=== PATIENT | female | born 1945 | race Caucasian/White ===

== ENCOUNTER 2018-10-08 16:38 | Emergency (ER) | payer OTHER ==
[~2018-10-08] VITALS: Ht 147.3 cm; Wt 65.3 kg
[~2018-10-08 16:38] MED LIST: AMLO10 PO; ATEN100 PO; LOSHYD PO; METO50 PO; NISO10ER PO; VALS80 PO
[2018-10-08 17:29] LABS: BASOPHILS ABSOLUTE AUTO 0.05 K/mm3 (0.00-0.23); BASOPHILS PERCENT AUTO 1 % (0-2); EOSINOPHILS ABSOLUTE AUTO 0.64 K/mm3 (0.00-0.68); EOSINOPHILS PERCENT AUTO 9 % (0-6); Hematocrit 45.7 % (33.0-51.0); Hemoglobin 15.4 g/dL (11.5-16.0); IMMATURE GRAN ABSOLUTE AUTO 0.02 K/mm3 (0.00-0.10); IMMATURE GRAN PERCENT AUTO 0 % (0-1); LYMPHOCYTES ABSOLUTE AUTO 1.51 K/mm3 (0.84-5.20); LYMPHOCYTES PERCENT AUTO 22 % (21-46); MONOCYTES ABSOLUTE AUTO 0.56 K/mm3 (0.16-1.47); MONOCYTES PERCENT AUTO 8 % (4-13); Mean Corpuscular HGB 32.6 pg (26.0-34.0); Mean Corpuscular HGB Conc 33.7 g/dL (31.5-36.5); Mean Corpuscular Volume 97 fL (80-100); Mean Platelet Volume 10.1 fL (9.1-12.4); NEUTROPHILS ABSOLUTE AUTO 4.06 K/mm3 (1.96-9.15); NEUTROPHILS PERCENT AUTO 59 % (41-73); Platelet Count 241 K/mm3 (150-400); RDW Coefficient Variation 12.3 % (11.7-14.2); RDW Standard Deviation 44.2 fL (35.1-46.3); Red Blood Cell Count 4.72 M/mm3 (3.80-5.20); White Blood Cell Count 6.84 K/mm3 (4.00-11.30)
[2018-10-08] MEDS ORDERED: ELIQUIS2.5 MG PO (17:29)
[2018-10-08] MEDS ORDERED: POTA10T PO (17:30)
[2018-10-08] MEDS ORDERED: METO100 PO (17:30)
[2018-10-08] MEDS ORDERED: ZESTORETIC 20-251 EA PO (17:30)
[2018-10-08] MEDS ORDERED: ROSU5 PO (17:30)
[2018-10-08 17:49] LABS: Alanine Aminotransfer (ALT/SGP 24 U/L (12-78); Albumin, Blood 3.6 g/dL (3.4-5.0); Albumin/Globulin Ratio 0.8 (0.8-1.8); Alk Phos 57 U/L (50-136); Anion Gap 7 mmol/L (6-16); Aspartate Aminotrans (AST/SGOT 23 U/L (12-37); Bilirubin, Total 0.5 mg/dL (0.1-1.0); Blood Urea Nitrogen 33 mg/dL (8-24); Bun/Creatinine Ratio 44.1 (12.0-20.0); CO2, Blood 26 mmol/L (21-32); Calcium, Blood 9.2 mg/dL (8.5-10.1); Chloride, Blood 106 mmol/L (98-108); Creatinine, Blood 0.75 mg/dL (0.40-1.00); Globulin, Blood 4.5 g/dL (2.2-4.0); Glomerular Filtration Rate >60 (60-); Glucose, Blood 157 mg/dL (70-99); Potassium, Blood 3.3 mmol/L (3.5-5.5); Sodium, Blood 139 mmol/L (136-145); Total Protein, Blood 8.1 g/dL (6.4-8.2)
== END 2018-10-08 19:00 | disposition home or self-care (01) ==
LOC: ER 16:38
PROVIDERS: Emergency Medicine
DX: G45.9 Transient cerebral ischemic attack, unspecified (principal); I48.91 Unspecified atrial fibrillation; I10 Essential (primary) hypertension; Z86.73 Personal history of transient ischemic attack (TIA), and cerebral infarction without residual deficits; Z79.899 Other long term (current) drug therapy; Z79.02 Long term (current) use of antithrombotics/antiplatelets
CPT/HCPCS: 36415; 70450; 80053; 85025; 93005; 93010; 99284-25

== ENCOUNTER 2022-02-11 12:37 | Inpatient (IN) | payer OTHER ==
[~2022-02-11] VITALS: Ht 157.5 cm; Wt 72.6 kg
[~2022-02-11 12:37] MED LIST changes: -CALCIUM 500 MG1 EAC2 PO; -MULVITA PO; -PRESERVISION A1 EAC1 PO; -Prinivil10 MG PO
[2022-02-11 14:02] LABS: Influenza A, PCR NEGATIVE (NEGATIVE); Influenza B, PCR NEGATIVE (NEGATIVE); Resp Syncytial Virus, PCR NEGATIVE (NEGATIVE); SARS-Cov-2 (COVID-19) PCR, MMC NEGATIVE (NEGATIVE)
[2022-02-11] MEDS ORDERED: MULVITA PO (14:29)
[2022-02-11] MEDS ORDERED: Prinivil10 MG PO (14:29)
[2022-02-11] MEDS ORDERED: PRESERVISION A1 EAC1 PO (14:29)
[2022-02-11] MEDS ORDERED: CALCIUM 500 MG1 EAC2 PO (14:30)
--- NOTE | 2022-02-11 18:12 | NUR ---
SHIFT SUMMARY PT ADMITTED FROM THE ED AT 1700. ELEVATED BP, PROVIDER NOTIFIED AND AMLODIPINE 5MG GIVEN NOW AND SCHEDULED FOR DAILY. PT IS ON 2L NC. SHE IS A 1 ASSIST TO THE COMMODE. HER NEPHEW IS THE SOURCE OF HER MEDICAL HX INFORMATION AND MEDICATION INFORMATION. HE WAS PRESENT IN THE ED BUT DID NOT COME UP WITH HER TO THE FLOOR. AWAITING FOR HIM TO COMPLETE THE HX AND MED PORTION OF THE ASSESSMENT. SHE IS AOX4 AND [place] BUT HAS HEARING AIDES IN PLACE BL. WILL REPORT TO ONCOMING NURSE.
[2022-02-12 04:51] LABS: Hematocrit 42.1 % (33.0-51.0); Hemoglobin 15.1 g/dL (11.5-16.0); Mean Corpuscular HGB 32.8 pg (26.0-34.0); Mean Corpuscular HGB Conc 35.9 g/dL (31.5-36.5); Mean Corpuscular Volume 91 fL (80-100); Mean Platelet Volume 10.5 fL (9.1-12.4); Platelet Count 235 K/mm3 (150-400); RDW Coefficient Variation 13.2 % (11.7-14.2); Red Blood Cell Count 4.61 M/mm3 (3.80-5.20); White Blood Cell Count 9.19 K/mm3 (4.00-11.30)
[2022-02-12 05:17] LABS: Albumin, Blood 3.1 g/dL (3.4-5.0); Albumin/Globulin Ratio 0.9 (0.8-1.8); Bilirubin, Total 1.3 mg/dL (0.1-1.0); Bun/Creatinine Ratio 40.4 (12.0-20.0); Calcium, Blood 8.8 mg/dL (8.5-10.1); Creatinine, Blood 0.99 mg/dL (0.40-1.00); Globulin, Blood 3.5 g/dL (2.2-4.0); Potassium, Blood 2.7 mmol/L (3.5-5.5); Total Protein, Blood 6.6 g/dL (6.4-8.2)
--- NOTE | 2022-02-12 05:55 | NUR ---
CALLED DR ROLON FOR HYPOKALCEMIA / NO ANSWER / WAITING CALL BACK
--- NOTE | 2022-02-12 05:59 | NUR ---
SPOKE TO DR ROLON AND RECEIVED ORDERS FOR KCL 40 IV TIMES 2 FOR 2.7 POTASSIUM
--- NOTE | 2022-02-12 06:42 | NUR ---
PATIENT RESTED WELL THROUGH SHIFT. 1 ASSIST TO BEDSIDE COMMODE, 2LNC, EVAC IV TO RAC, AFIB CONTROLLED RATE IN 90'S, 60 MEQ ORDERED FOR POTASSIUM 2.7. NO EVENTS OVERNIGHT
--- NOTE | 2022-02-12 16:37 | NUR ---
SHIFT SUMMARY: PT ALERT AND ORIENTED X4. PT HAD A POTASSIUM LEVEL OF 2.7 THIS AM. 60 MEQ OF POTASSIUM RAN THROUGH PT'S IV THIS SHIFT. DC'D RAC IV AND PLACED NEW IV IN LEFT HAND. PT NEPHEW HAS BEEN IN ROOM THROUGHOUT DAY. BOTH NEPHEW AND PT STATED THEY WOULD LIKE PT TO HAVE PHYSICAL THERAPY/EXERCISE WHILE IN THE HOSPITAL. DR. KENNEY AWARE. PT REFUSED [place]. STATED HER PCP DOES NOT WANT HER TO CONTINUE TAKING. PT HAD AN ASYMPTOMATIC SMALL RUN OF V-TACH THIS AM. PT RECEIVING BUMEX FOR HF AND TOLERATING WELL. PT CURRENTLY RESTING IN BED. BED IN LOWEST POSITION. CALL LIGHT IN REACH. WILL CONTINUE TO MONITOR.
[2022-02-13 06:31] LABS: Hemoglobin 14.4 g/dL (11.5-16.0); Mean Corpuscular HGB 32.7 pg (26.0-34.0); Mean Corpuscular HGB Conc 35.1 g/dL (31.5-36.5); Mean Corpuscular Volume 93 fL (80-100); Mean Platelet Volume 10.4 fL (9.1-12.4); Platelet Count 213 K/mm3 (150-400); RDW Coefficient Variation 13.3 % (11.7-14.2); RDW Standard Deviation 45.1 fL (35.1-46.3); White Blood Cell Count 8.09 K/mm3 (4.00-11.30)
--- NOTE | 2022-02-13 06:32 | NUR ---
PATIENT SLEPT WELL THREW NIGHT. GAVE TYLENOL FOR BACK PAIN THIS AM. ALERT AND ORIENTED, SLOW TO RESPOND BUT [place] WITH HEARING AIDS, 1 ASSIST TO RESTROOM, CONTROLLED AFIB ON TELE, 2LNC, CARDIAC DIET, 20 RIGHT HAND SALINE LOCKED. GOT PATIENT UP TO CHAIR THIS MORNING. NO EVENTS OVERNIGHT
[2022-02-13 07:00] LABS: Albumin, Blood 2.9 g/dL (3.4-5.0); Albumin/Globulin Ratio 0.8 (0.8-1.8); Bilirubin, Total 0.7 mg/dL (0.1-1.0); Bun/Creatinine Ratio 40.8 (12.0-20.0); Calcium, Blood 7.8 mg/dL (8.5-10.1); Creatinine, Blood 1.2 mg/dL (0.40-1.00); Globulin, Blood 3.5 g/dL (2.2-4.0); Potassium, Blood 3.4 mmol/L (3.5-5.5); Total Protein, Blood 6.4 g/dL (6.4-8.2)
--- NOTE | 2022-02-13 17:33 | NUR ---
SHIFT SUMMARY: PT ALERT AND ORIENTED X4. PT HAS BEEN COOPERATIVE AND PLEASANT THIS SHIFT. NO ACUTE CHANGES. POTASSIUM CAME BACK AT 3.4 RATHER THAN THE 2.7 YESTERDAY. PT RECEIVING SCHEDULED POTASSIUM TABLETS. PT C/O 3/10 PAIN IN BACK THIS AFTERNOON BUT DECLINED TYLENOL. REPOSITIONED PT WHICH SHE STATED HELPED. IV BUMEX CHANGED TO PO. IV IN LEFT HAND PATENT AND FLUSHING. PT EVAL ORDERED WELL A DIETARY CONSULT. PT ONE PERSON/STAND BY ASSIST WITH TRANSFERS. CALL LIGHT IN REACH. WILL CONTINUE TO MONITOR.
--- NOTE | 2022-02-14 06:41 | NUR ---
PATIENT SLEPT WELL THROUGH SHIFT. ALERT AND ORIENTED, [place] W/ HEARING AIDS, 2LNC, USES WALKER WHEN AMBULATING. NO EVENTS OVERNIGHT
--- NOTE | 2022-02-14 09:00 | NUR ---
PT PLEASANT TALKATIVE. STATES HAS NEED TO TALK. DENIES PAIN THIS AN. A/O X4. H/R IRREG, NO MURMUR NOTED. PER TELE. AFIB IN 130'S. +1 EDEMA BLE. LUNGS CLEAR, RESP EASY, UNLABORED. ON 2L WITH SATS AT 98% TURNED DOWN TO 1L SATS CONT >95%. BT X4 ALST BM TODAY. VOIDS 1 ASST FWW TO BATHROOM. BED IN LOW POSITION, CALL LITE IN REACH, CALLS APPROP
[2022-02-14 09:43] LABS: Bun/Creatinine Ratio 37.8 (12.0-20.0); Calcium, Blood 7.6 mg/dL (8.5-10.1); Creatinine, Blood 0.82 mg/dL (0.40-1.00); Potassium, Blood 3.2 mmol/L (3.5-5.5)
--- NOTE | 2022-02-14 18:11 | NUR ---
TELE CALLED, PT H/R HAS BEEN CREEPING UP TO 130-140 THIS FREIDA. DID GET UP TO 150'S WHEN AMBULATING TO BATHROOM. CALLED DR KENNEY. ORDERS TO GIVE THE PM METOPROLOL DOSE NOW. TOO SOON TO PULL ON PIXIS, ONE TIME ORDER MADE. MARKED NOT GIVEN ON PM DOSE.
--- NOTE | 2022-02-14 18:49 | NUR ---
CALLED TELE , STATES H/R SLOWLY CREEPING DOWN, 120'S NOW
--- NOTE | 2022-02-14 18:50 | NUR ---
PT PLEASANT COOP TODAY. DID HAVE TELE CALL ABOUT INCREASED H/R TODAY. DR KENNEY OKAYED GIVE METOPROLOL EARLY. IT IS PRESENTLY SLOWLY DROPPING. PT AMBULATING TO BATHROOM SBA. STATES IS FEELING SOME NEEDYNESS . WANTS SOMEONE TO JUST TALK TO. NO OTHER NEW CONCERNS NOTED. BED IN LOW POSITION, CALL LITE IN REACH. CALLS APPROP
[2022-02-15 05:08] LABS: Hematocrit 43.5 % (33.0-51.0); Hemoglobin 14.9 g/dL (11.5-16.0); Mean Corpuscular HGB Conc 34.3 g/dL (31.5-36.5); Mean Corpuscular Volume 94 fL (80-100); Mean Platelet Volume 10.4 fL (9.1-12.4); Platelet Count 217 K/mm3 (150-400); RDW Coefficient Variation 13.1 % (11.7-14.2); RDW Standard Deviation 44.3 fL (35.1-46.3); Red Blood Cell Count 4.65 M/mm3 (3.80-5.20); White Blood Cell Count 7.72 K/mm3 (4.00-11.30)
[2022-02-15 05:32] LABS: Magnesium, Blood 1.7 mg/dL (1.6-2.4)
[2022-02-15 05:33] LABS: Bun/Creatinine Ratio 37.5 (12.0-20.0); Calcium, Blood 7.6 mg/dL (8.5-10.1); Creatinine, Blood 0.85 mg/dL (0.40-1.00); Potassium, Blood 2.9 mmol/L (3.5-5.5)
--- NOTE | 2022-02-15 07:35 | NUR ---
PATIENT SLEPT THROUGH SHIFT. NO EVENTS OVERNIGHT. ALERT AND ORIENTED, [place], HEARING AIDS IN PLACE, 1LNC, UP TO BATHROOM WITH WALKER
[2022-02-15 12:37] LABS: Bun/Creatinine Ratio 35.9 (12.0-20.0); Creatinine, Blood 0.81 mg/dL (0.40-1.00); Potassium, Blood 3.5 mmol/L (3.5-5.5)
--- NOTE | 2022-02-15 13:06 | NUR ---
SPOKE TO DR KENNEY. UPDATED HER ON TELE INFO. H/R UPPER 90'S BUT UP TO 130-14- WITH AMB. NO O2 AT DAYS NEEDED, > 94%. NITES/SLEEPING APPEARED TO DROP THIS AM ON R/A. ALSO UPDATED LOW BP AT NITE LAST NITE
--- NOTE | 2022-02-15 17:05 | NUR ---
PER [employer] TECHNOLOGIST. PT BEEN AVERAGING 115 MUCH OF AFT.
--- NOTE | 2022-02-15 18:03 | NUR ---
PT QUITE PLEASANT TODAY. NO C/O PAIN. DID HAVE SOME LOW BP THIS FREIDA, RECHECK WAS IMPROVED. DR STARTED ON DIGOXIN TODAY. PT HAD FAMILY TO VISIT TODAY. SHE PERKED UP WHEN THEY THERE. IS AMBULATING TO BATHROOM SBA NEEDED WITH FWW. NO L2 ON TODAY. HAS BEEN >96% WHEN I SPOT CHECKED T/O DAY. NO NEW COONCERNS NOTED TODAY. BED I NLOW POSITION, CALL LITE IN REACH, CALLS APPROP
--- NOTE | 2022-02-16 16:18 | NUR ---
PT IS A/0X4, PLEASANT AND COOPERATIVE. THE PT IS UP WITH MINIMAL ASSIST TO THE CHAIR AND TO THE BATHROOM. THE PT REPORTED LEFT FOOT PAIN ON AMBULATION TO THE BATHROOM THIS AM, NEW ONSET OF PAIN. PT GIVEN TYLENOL X1 SO FAR THIS SHIFT, PTS FOOT IS SWOLLEN COMPARED TO THE RIGHT FOOT NO REDNESS NOTICED. PT DOES NOT RECALL ANY INJURY THAT MIGHT HAVE OCCURED TO IT. PT IS MILDLY SOB WITH ACTIVITY OTHERWISE APPEARS TO BE BREATHING EASILY AT REST ON RA. CALL LIGHT IN REACH. WILL CONTINUE TO MONITOR AND ASSESS FOR CHANGES
--- NOTE | 2022-02-17 07:10 | NUR ---
PT RESTING IN BED NO S/S OF ACUTE DISTRESS, SAFETY MEASURES IN PLACE REPORT GIVEN TO ON COMING NURSE
[2022-02-17 10:13] LABS: Anion Gap 7 mmol/L (6-16); Blood Urea Nitrogen 26 mg/dL (8-24); Bun/Creatinine Ratio 36.5 (12.0-20.0); CO2, Blood 25 mmol/L (21-32); Calcium, Blood 9.2 mg/dL (8.5-10.1); Chloride, Blood 105 mmol/L (98-108); Creatinine, Blood 0.71 mg/dL (0.40-1.00); Digoxin (Lanoxin) 1.24 ug/mL (0.80-2.00); Glomerular Filtration Rate 88 (60-); Glucose, Blood 111 mg/dL (70-99); Potassium, Blood 3.8 mmol/L (3.5-5.5); Sodium, Blood 137 mmol/L (136-145)
[2022-02-17] MEDS ORDERED: BUME2 PO (12:14)
[2022-02-17] MEDS ORDERED: DIGOX125 MC1 PO (12:15)
--- NOTE | 2022-02-17 13:59 | NUR ---
PT DISCHARGED THE PT AND HER FAMILY VERBALIZED UNDERSTANDING OF THE DC INSTRUCTIONS. THE PTS PRESCRIPTIONS WERE FAXED TO [facility] REQUESTED. A POST HOSPITAL REVIEW APPOINTMENT WAS MADE PRIOR TO DC. THE PT WAS TRANSFERED VIA WHEELCHAIR ACCOMPANIED BY HER NEPHEW AND THE [employer] PLANT ATTENDANT.
== END 2022-02-17 13:33 | disposition home or self-care (01) | DRG 291 ==
LOC: ER 12:37 → MEDS 15:02
PROVIDERS: Internal Medicine; Student in an Organized Health Care Education/Training Program; ADMIT Internal Medicine
DX: I13.0 Hypertensive heart and chronic kidney disease with heart failure and stage 1 through stage 4 chronic kidney disease, or unspecified chronic kidney disease (principal); I50.23 Acute on chronic systolic (congestive) heart failure; J96.01 Acute respiratory failure with hypoxia; N17.9 Acute kidney failure, unspecified; I48.91 Unspecified atrial fibrillation; E87.6 Hypokalemia; N18.30 Chronic kidney disease, stage 3 unspecified; R94.5 Abnormal results of liver function studies; K76.1 Chronic passive congestion of liver; E78.5 Hyperlipidemia, unspecified; F03.90 Unspecified dementia, unspecified severity, without behavioral disturbance, psychotic disturbance, mood disturbance, and anxiety; R73.9 Hyperglycemia, unspecified; Z20.822 Contact with and (suspected) exposure to COVID-19; I44.7 Left bundle-branch block, unspecified; I25.2 Old myocardial infarction; Z79.899 Other long term (current) drug therapy; Z79.01 Long term (current) use of anticoagulants; Z79.811 Long term (current) use of aromatase inhibitors; Z86.73 Personal history of transient ischemic attack (TIA), and cerebral infarction without residual deficits; Z98.49 Cataract extraction status, unspecified eye
CPT/HCPCS: 0241U; 36415; 71045; 80048; 80053; 80162; 83735; 83880; 84484; 85027; 93005; 93010; 93306; 94760; 96374; 97110; 97116; 97161; 97530; 99285-25; A9270; J1160; J1940; J2405; J3480; J7050

== ENCOUNTER → 2022-02-11 | Outpatient (CLI) | payer OTHER ==
[~2022-02-11] MED LIST changes: +CALCIUM 500 MG1 EAC2 PO; +ELIQUIS2.5 MG PO; +METO100 PO; +MULVITA PO; +POTA10T PO; +PRESERVISION A1 EAC1 PO; +Prinivil10 MG PO; +ROSU5 PO; +ZESTORETIC 20-251 EA PO
[2022-02-11 12:23] LABS: BASOPHILS ABSOLUTE AUTO 0.04 K/mm3 (0.00-0.23); BASOPHILS PERCENT AUTO 0 % (0-2); EOSINOPHILS ABSOLUTE AUTO 0.09 K/mm3 (0.00-0.68); EOSINOPHILS PERCENT AUTO 1 % (0-6); Hematocrit 46.1 % (33.0-51.0); Hemoglobin 16.1 g/dL (11.5-16.0); IMMATURE GRAN ABSOLUTE AUTO 0.06 K/mm3 (0.00-0.10); IMMATURE GRAN PERCENT AUTO 1 % (0-1); LYMPHOCYTES PERCENT AUTO 7 % (21-46); MONOCYTES ABSOLUTE AUTO 0.76 K/mm3 (0.16-1.47); MONOCYTES PERCENT AUTO 7 % (4-13); Mean Corpuscular HGB 32.9 pg (26.0-34.0); Mean Corpuscular HGB Conc 34.9 g/dL (31.5-36.5); Mean Corpuscular Volume 94 fL (80-100); Mean Platelet Volume 10.8 fL (9.1-12.4); NEUTROPHILS ABSOLUTE AUTO 9.37 K/mm3 (1.96-9.15); NEUTROPHILS PERCENT AUTO 84 % (41-73); Platelet Count 295 K/mm3 (150-400); RDW Coefficient Variation 13.7 % (11.7-14.2); RDW Standard Deviation 46.5 fL (35.1-46.3); Red Blood Cell Count 4.89 M/mm3 (3.80-5.20); White Blood Cell Count 11.12 K/mm3 (4.00-11.30)
[2022-02-11 12:34] LABS: Albumin, Blood 3.6 g/dL (3.4-5.0); Albumin/Globulin Ratio 0.9 (0.8-1.8); Bilirubin, Total 1.7 mg/dL (0.1-1.0); Bun/Creatinine Ratio 30.8 (12.0-20.0); Calcium, Blood 9.9 mg/dL (8.5-10.1); Creatinine, Blood 1.17 mg/dL (0.40-1.00); Globulin, Blood 4.1 g/dL (2.2-4.0); Potassium, Blood 3.3 mmol/L (3.5-5.5); Total Protein, Blood 7.7 g/dL (6.4-8.2)
== END | disposition home or self-care (01) ==
LOC: LAB SHORT 12:19
PROVIDERS: Physician Assistant
DX: R06.00 Dyspnea, unspecified (principal)
CPT/HCPCS: 80053; 83880; 84484; 85025

== ENCOUNTER 2022-08-08 03:37 | Inpatient (IN) | payer OTHER ==
[~2022-08-08] VITALS: Ht 162.6 cm; Wt 58.5 kg
[~2022-08-08 03:37] MED LIST changes: +BUME2 PO; +CALCIUM 500 MG1 EAC2 PO; +DIGOX125 MC1 PO; +ENTRESTO 49 MG1 EACH PO; +FISH OIL 1,2001 EAC4 PO; +MULVITA PO; +PRESERVISION A1 EAC1 PO; +Preservision S1 EACH PO; +Prinivil10 MG PO
[2022-08-08 03:55] LABS: Base Excess Venous -5.3 mmol/L; Bicarbonate Venous 20.5 mmol/L (24.0-30.0); PCO2 Venous 37.1 mmHg (38-42); pH Blood Venous 7.35 (7.34-7.37)
[2022-08-08 04:00] LABS: BASOPHILS PERCENT AUTO 1 % (0-2); EOSINOPHILS ABSOLUTE AUTO 0.47 K/mm3 (0.00-0.68); EOSINOPHILS PERCENT AUTO 5 % (0-6); Hematocrit 41.9 % (33.0-51.0); Hemoglobin 13.6 g/dL (11.5-16.0); IMMATURE GRAN ABSOLUTE AUTO 0.05 K/mm3 (0.00-0.10); IMMATURE GRAN PERCENT AUTO 1 % (0-1); LYMPHOCYTES ABSOLUTE AUTO 2.33 K/mm3 (0.84-5.20); LYMPHOCYTES PERCENT AUTO 23 % (21-46); MONOCYTES ABSOLUTE AUTO 0.64 K/mm3 (0.16-1.47); MONOCYTES PERCENT AUTO 6 % (4-13); Mean Corpuscular HGB 31.6 pg (26.0-34.0); Mean Corpuscular HGB Conc 32.5 g/dL (31.5-36.5); Mean Corpuscular Volume 97 fL (80-100); Mean Platelet Volume 10.2 fL (9.1-12.4); NEUTROPHILS ABSOLUTE AUTO 6.77 K/mm3 (1.96-9.15); NEUTROPHILS PERCENT AUTO 65 % (41-73); Platelet Count 361 K/mm3 (150-400); RDW Standard Deviation 50.5 fL (35.1-46.3); Red Blood Cell Count 4.31 M/mm3 (3.80-5.20); White Blood Cell Count 10.36 K/mm3 (4.00-11.30)
[2022-08-08 04:29] LABS: Alanine Aminotransfer (ALT/SGP 63 U/L (12-78); Albumin/Globulin Ratio 0.7 (0.8-1.8); Alk Phos 94 U/L (50-136); Anion Gap 12 mmol/L (6-16); Aspartate Aminotrans (AST/SGOT 95 U/L (12-37); Bilirubin, Total 0.7 mg/dL (0.1-1.0); Blood Urea Nitrogen 23 mg/dL (8-24); Bun/Creatinine Ratio 19.2 (12.0-20.0); CO2, Blood 19 mmol/L (21-32); Calcium, Blood 9.9 mg/dL (8.5-10.1); Chloride, Blood 107 mmol/L (98-108); Digoxin (Lanoxin) 0.56 ug/mL (0.80-2.00); Globulin, Blood 4.3 g/dL (2.2-4.0); Glomerular Filtration Rate 47 (60-); Glucose, Blood 293 mg/dL (70-99); Potassium, Blood 4.1 mmol/L (3.5-5.5); Sodium, Blood 138 mmol/L (136-145); Total Protein, Blood 7.3 g/dL (6.4-8.2)
--- NOTE | 2022-08-08 06:52 | NUR ---
ASSUMED CARE PT IS A&O X3-4 (KNEW SHE WAS IN A HOSPITAL IN [place], BUT THOUGHT IT WAS [place]; KNOW'S IT'S 2022). SPO2 >92% ON 4L NC; MAP >65; AFIB IN THE LOW 100'S. PT DENIES CP OR NAUSEA AT THIS TIME. STATES SHE HAS MILD SOB. CRACKLES NOTED IN LOWER LOBES BILATERALLY. EDEMA NOTED IN BILATERAL LOWER EXTREMITIES. PULSES NOTED IN ALL EXTREMITIES. PERRLA. PT CURRENTLY SAYS SHE "FEELS BETTER" BUT IS JUST "TIRED". TODeuce [id number].
[2022-08-08 08:00] VITALS: BP 143/106
[2022-08-08 12:46] VITALS: BP 131/86
--- NOTE | 2022-08-08 16:02 | NUR ---
DAY SHIFT SUMMARY PT ORIENTED X4, DELAYED RESPONSES AT TIMES. +EDEMA TO LOWER EXTREMITIES, AFIB ON TELE, RATES IN THE 140S PRIOR TO PO AM MED ADMINISTRATION. PT ON 4L NC WITH SATS WNL. DENIES PAIN OR DISCOMFORT. ON IV BUMEX, CONTINENT TO INCONTINENT. BRIEF IN PLACE, USES BSC SBA. PT EDUCATED ON FIRE IGNITION SOURCES AND FIRE SAFETY. DENIES ANY FIRE PARAPHENELIA
[2022-08-08 16:27] VITALS: BP 131/88
[2022-08-08 20:00] VITALS: BP 115/71
[2022-08-08 21:11] VITALS: BP 141/90
[2022-08-09] VITALS: BP 137/74
--- NOTE | 2022-08-09 00:15 | NUR ---
ASSUMED CARE OF PT AT 1915 BEDSIDE REPORT RECEIVED FROM RN, PT IS RESTING COMFORTABLY. HR AFIB 90'S, BP WNL. PT PLEASANT AND COOPERATIVE. BILATERAL HEARING AIDS IN PLACE. PIV X2 FLUSH AND WITHDRAW BLOOD WELL, BOTH SL. FAMILY NO LONGER AT BEDSIDE ALTHOUGH PT REPORTS THEY HAVE BEEN IN TODAY TO VISIT. RN TO CONTINUE TO MONITOR.
[2022-08-09 03:44] LABS: BASOPHILS ABSOLUTE AUTO 0.06 K/mm3 (0.00-0.23); BASOPHILS PERCENT AUTO 1 % (0-2); EOSINOPHILS PERCENT AUTO 5 % (0-6); Hemoglobin 11.3 g/dL (11.5-16.0); IMMATURE GRAN ABSOLUTE AUTO 0.02 K/mm3 (0.00-0.10); IMMATURE GRAN PERCENT AUTO 0 % (0-1); LYMPHOCYTES ABSOLUTE AUTO 1.03 K/mm3 (0.84-5.20); LYMPHOCYTES PERCENT AUTO 16 % (21-46); MONOCYTES ABSOLUTE AUTO 0.78 K/mm3 (0.16-1.47); MONOCYTES PERCENT AUTO 12 % (4-13); Mean Corpuscular HGB 31.6 pg (26.0-34.0); Mean Corpuscular HGB Conc 33.2 g/dL (31.5-36.5); Mean Corpuscular Volume 95 fL (80-100); Mean Platelet Volume 10.3 fL (9.1-12.4); NEUTROPHILS ABSOLUTE AUTO 4.34 K/mm3 (1.96-9.15); NEUTROPHILS PERCENT AUTO 67 % (41-73); Platelet Count 247 K/mm3 (150-400); RDW Coefficient Variation 13.7 % (11.7-14.2); RDW Standard Deviation 47.6 fL (35.1-46.3); Red Blood Cell Count 3.58 M/mm3 (3.80-5.20); White Blood Cell Count 6.53 K/mm3 (4.00-11.30)
[2022-08-09 03:54] VITALS: BP 121/63
[2022-08-09 04:00] VITALS: BP 119/73
[2022-08-09 04:21] LABS: Alanine Aminotransfer (ALT/SGP 41 U/L (12-78); Albumin, Blood 2.5 g/dL (3.4-5.0); Albumin/Globulin Ratio 0.7 (0.8-1.8); Alk Phos 61 U/L (50-136); Anion Gap 7 mmol/L (6-16); Aspartate Aminotrans (AST/SGOT 28 U/L (12-37); Bilirubin, Total 0.6 mg/dL (0.1-1.0); Blood Urea Nitrogen 25 mg/dL (8-24); Bun/Creatinine Ratio 22.9 (12.0-20.0); CO2, Blood 30 mmol/L (21-32); Calcium, Blood 8.6 mg/dL (8.5-10.1); Chloride, Blood 104 mmol/L (98-108); Creatinine, Blood 1.09 mg/dL (0.40-1.00); Digoxin (Lanoxin) 0.69 ug/mL (0.80-2.00); Globulin, Blood 3.4 g/dL (2.2-4.0); Glomerular Filtration Rate 52 (60-); Glucose, Blood 101 mg/dL (70-99); Potassium, Blood 3.2 mmol/L (3.5-5.5); Sodium, Blood 141 mmol/L (136-145); Total Protein, Blood 5.9 g/dL (6.4-8.2)
--- NOTE | 2022-08-09 05:16 | NUR ---
NOC SHIFT SUMMARY PT A/O, SLOW ANSWERS DUE TO DEVELOPMENTAL DELAY. A FIB 80-90'S, BP WNL. 2L NC TO MAINTAIN O2 SAT > 94%. OOB TO BSC TO VOID X1. SEVERELY DOUGLAS, HEARING AIDS NOT WORN WHILE ASLEEP. PIV'S SL. PT EDUCATED ON FIRE IGNITION SOURCES AND FIRE SAFETY, DENIES ANY FIRE PARAPHERNALIA. RN TO CONTINUE TO MONITOR.
[2022-08-09 13:37] VITALS: BP 118/82
[2022-08-09 15:11] VITALS: BP 112/84
--- NOTE | 2022-08-09 15:13 | NUR ---
Summary. Assumed care at approximately 0700. Bedside report received from nightshift RN. Pt up in chair at time of report, on via NC at 3 L/min. No acute needs at time of report. See assessment for further details. Pt transferred to Medical Room 341, report given to Medical Floor RN. All pt belongings transferred with patient. Room mitigated for fire danger at beginning of shift.
--- NOTE | 2022-08-09 15:20 | NUR ---
Received pt transfer @1500 via wheelchair. Pt is alert and oriented. Denies pain. Resp even nonlabored on 3L NC. LSCTA with diminished bases. Oriented to room and call light and safety. No c/o verbalized. Will monitor.
[2022-08-09 19:20] VITALS: BP 122/89
[2022-08-10 05:14] VITALS: BP 129/92
[2022-08-10 05:57] LABS: Bun/Creatinine Ratio 25.4 (12.0-20.0); Calcium, Blood 8.3 mg/dL (8.5-10.1); Creatinine, Blood 0.99 mg/dL (0.40-1.00); Potassium, Blood 3.1 mmol/L (3.5-5.5)
--- NOTE | 2022-08-10 06:13 | NUR ---
DENIES SOB ON 2L NC. SBA TO TOILET WITH FWW, TOLERATES ACTIVITY. VSS, PLEASANT. STATES SHE FEELS IMPROVEMENT IN CONDITION. UNEVENTFUL NIGHT. FIRE SAFETY EDUCATION COMPLETE, EXPRESSES UNDERSTANDING.
[2022-08-10 07:25] VITALS: BP 134/88
[2022-08-10 15:10] VITALS: BP 126/94
--- NOTE | 2022-08-10 18:11 | NUR ---
SHIFT SUMMARY PT IS ALERT AND ORIENTED X4. SBA WITH FWW. 2L NC AT BEGINNING SHIFT IS NOW DOWN TO R/A sat >92%. PT HAS DENIED PAIN AND ANY SOB. PT DENIES SMOKING ANY PRODUCT. DURING HOURLY ROUNDING, EDUCATION PROVIDED ON RISKS OF INJURY WHILE USING AN IGNITION SOURCE AROUND OXYGEN. PT VERBALIZES UNDERSTANDING. PT DENIES HAVING ANY IGNITION SOURCES ON HER OR IN HER ITEMS. NO VISITORS THIS SHIFT. PT REPORTS FEELING WELL OVERALL. NO ACUTE CHANGES THIS SHIFT. PT UP TO CHAIR AND IN AND OUT OF BATHROOM WITH SBA.
[2022-08-10 19:26] VITALS: BP 110/81
[2022-08-11 05:28] VITALS: BP 122/89
--- NOTE | 2022-08-11 05:30 | NUR ---
SHIFT SUMMARY PATIENT ALERT, DENIES PAIN, NO C/O SOB. IS [place], HEARING AIDS AT BEDSIDE. HR IRR/IRR, NOTED HX OF AFIB, MURMUR. NO ACUTE CHANGES OVERNIGHT. PATIENT EDUCATED RE: IGNITION SOURCES AND RISK OF INJURY, VERBALIZED UNDERSTANDING, DENIES SMOKING. BED LOW, CALL LIGHT IN REACH.
[2022-08-11 05:44] LABS: BASOPHILS ABSOLUTE AUTO 0.06 K/mm3 (0.00-0.23); BASOPHILS PERCENT AUTO 1 % (0-2); EOSINOPHILS ABSOLUTE AUTO 0.34 K/mm3 (0.00-0.68); EOSINOPHILS PERCENT AUTO 5 % (0-6); Hematocrit 36.9 % (33.0-51.0); Hemoglobin 12.7 g/dL (11.5-16.0); IMMATURE GRAN ABSOLUTE AUTO 0.02 K/mm3 (0.00-0.10); IMMATURE GRAN PERCENT AUTO 0 % (0-1); LYMPHOCYTES ABSOLUTE AUTO 1.15 K/mm3 (0.84-5.20); LYMPHOCYTES PERCENT AUTO 17 % (21-46); MONOCYTES ABSOLUTE AUTO 0.78 K/mm3 (0.16-1.47); MONOCYTES PERCENT AUTO 12 % (4-13); Mean Corpuscular HGB 31.9 pg (26.0-34.0); Mean Corpuscular HGB Conc 34.4 g/dL (31.5-36.5); Mean Corpuscular Volume 93 fL (80-100); Mean Platelet Volume 10.1 fL (9.1-12.4); NEUTROPHILS ABSOLUTE AUTO 4.25 K/mm3 (1.96-9.15); NEUTROPHILS PERCENT AUTO 64 % (41-73); Platelet Count 276 K/mm3 (150-400); RDW Coefficient Variation 13.4 % (11.7-14.2); RDW Standard Deviation 45.4 fL (35.1-46.3); Red Blood Cell Count 3.98 M/mm3 (3.80-5.20)
[2022-08-11 06:45] LABS: Bun/Creatinine Ratio 24.2 (12.0-20.0); Calcium, Blood 8.4 mg/dL (8.5-10.1); Creatinine, Blood 0.83 mg/dL (0.40-1.00); Potassium, Blood 3.2 mmol/L (3.5-5.5)
[2022-08-11 07:26] VITALS: BP 130/96
[2022-08-11] MEDS ORDERED: JARDIANCE25 MG PO (12:01)
[2022-08-11] MEDS ORDERED: ELIQUIS5 M2 PO (12:01)
--- NOTE | 2022-08-11 12:30 | NUR ---
DISCHARGE SUMMARY PT A&OX4, VSS/RA/[place]-HEARING AIDS IN, IV DC'D, BRIANNA PO, VOIDING, AMB W/FWW/UP TO CHAIR, DENIES SOB/CP/PRESSURE. DC INS PROVIDED. PT REP UNDERSTANDING THOSE INSTRUCTIONS INCLUDING NEW MED AT PHARMACY, FU WITH PCP 1 WK. LEFT FLOOR VIA WC WITH STATISTICS INTERN TO GO HOME WITH NEPHBRYANT TRAVIS, WITH ALL PERSONAL POSSESSIONS INCLUDING DC PACKET.
== END 2022-08-11 12:42 | disposition home health service (06) | DRG 291 ==
LOC: ER 03:37 → PCU 06:06 → MEDS 06:06 → PCU 06:44 → MEDS 08-09 15:05
PROVIDERS: Emergency Medicine; Internal Medicine; ADMIT Internal Medicine
PROC: 5A09357 Assistance with Respiratory Ventilation, Less than 24 Consecutive Hours, Continuous Positive Airway Pressure (ICD-10-PCS; principal; 2022-08-08)
DX: I13.0 Hypertensive heart and chronic kidney disease with heart failure and stage 1 through stage 4 chronic kidney disease, or unspecified chronic kidney disease (principal); I50.23 Acute on chronic systolic (congestive) heart failure; J96.01 Acute respiratory failure with hypoxia; I48.20 Chronic atrial fibrillation, unspecified; J44.1 Chronic obstructive pulmonary disease with (acute) exacerbation; Z51.5 Encounter for palliative care; N18.30 Chronic kidney disease, stage 3 unspecified; D63.1 Anemia in chronic kidney disease; F03.A0 Unspecified dementia, mild, without behavioral disturbance, psychotic disturbance, mood disturbance, and anxiety; E78.5 Hyperlipidemia, unspecified; R73.9 Hyperglycemia, unspecified; Z86.73 Personal history of transient ischemic attack (TIA), and cerebral infarction without residual deficits; Z98.49 Cataract extraction status, unspecified eye; Z98.890 Other specified postprocedural states; Z79.01 Long term (current) use of anticoagulants; Z79.899 Other long term (current) drug therapy
CPT/HCPCS: 36415; 71045; 80048; 80053; 80162; 82803; 82947; 83036; 83880; 84484; 85025; 93005; 93010; 94660; 94760; 94762; 96374; 96375; 97110; 97116; 97162; 97530; 99285-25; A9270; J1650

== ENCOUNTER 2022-11-10 19:18 | Inpatient (IN) | payer OTHER ==
[~2022-11-10] VITALS: Ht 142.2 cm; Wt 47.2 kg
[~2022-11-10 19:18] MED LIST changes: -BUME2 PO; +BUMETANIDE0.5 M1 PO; +CEFU500T30 PO; +ELIQUIS5 M2 PO; +JARDIANCE10 MG PO; -METO100 PO; +METO50ER PO; +NITROGLYCERIN0.4 M3 SL; +ONE DAILY MUL400 MCG PO; +VISBIOME 112.51 EACH PO
[2022-11-10 19:56] LABS: BASOPHILS ABSOLUTE AUTO 0.07 K/mm3 (0.00-0.23); BASOPHILS PERCENT AUTO 1 % (0-2); EOSINOPHILS ABSOLUTE AUTO 0.45 K/mm3 (0.00-0.68); EOSINOPHILS PERCENT AUTO 6 % (0-6); Hematocrit 46.9 % (33.0-51.0); Hemoglobin 15.6 g/dL (11.5-16.0); IMMATURE GRAN ABSOLUTE AUTO 0.01 K/mm3 (0.00-0.10); IMMATURE GRAN PERCENT AUTO 0 % (0-1); LYMPHOCYTES ABSOLUTE AUTO 0.94 K/mm3 (0.84-5.20); LYMPHOCYTES PERCENT AUTO 13 % (21-46); MONOCYTES ABSOLUTE AUTO 0.75 K/mm3 (0.16-1.47); MONOCYTES PERCENT AUTO 11 % (4-13); Mean Corpuscular HGB 32.4 pg (26.0-34.0); Mean Corpuscular HGB Conc 33.3 g/dL (31.5-36.5); Mean Corpuscular Volume 97 fL (80-100); Mean Platelet Volume 10.1 fL (9.1-12.4); NEUTROPHILS PERCENT AUTO 68 % (41-73); Platelet Count 260 K/mm3 (150-400); RDW Coefficient Variation 15.4 % (11.7-14.2); RDW Standard Deviation 54.9 fL (35.1-46.3); Red Blood Cell Count 4.82 M/mm3 (3.80-5.20); White Blood Cell Count 7.02 K/mm3 (4.00-11.30)
[2022-11-10 20:11] LABS: Albumin/Globulin Ratio 0.8 (0.8-1.8); Bilirubin, Total 0.6 mg/dL (0.1-1.0); Bun/Creatinine Ratio 25.9 (12.0-20.0); Calcium, Blood 9.9 mg/dL (8.5-10.1); Creatinine, Blood 0.97 mg/dL (0.40-1.00); Globulin, Blood 3.8 g/dL (2.2-4.0); Total Protein, Blood 6.8 g/dL (6.4-8.2)
[2022-11-11 01:02] LABS: BASOPHILS ABSOLUTE AUTO 0.05 K/mm3 (0.00-0.23); BASOPHILS PERCENT AUTO 1 % (0-2); EOSINOPHILS ABSOLUTE AUTO 0.24 K/mm3 (0.00-0.68); EOSINOPHILS PERCENT AUTO 4 % (0-6); Hematocrit 42.6 % (33.0-51.0); Hemoglobin 14.3 g/dL (11.5-16.0); IMMATURE GRAN ABSOLUTE AUTO 0.02 K/mm3 (0.00-0.10); IMMATURE GRAN PERCENT AUTO 0 % (0-1); LYMPHOCYTES PERCENT AUTO 11 % (21-46); MONOCYTES ABSOLUTE AUTO 0.62 K/mm3 (0.16-1.47); MONOCYTES PERCENT AUTO 10 % (4-13); Mean Corpuscular HGB 32.4 pg (26.0-34.0); Mean Corpuscular HGB Conc 33.6 g/dL (31.5-36.5); Mean Corpuscular Volume 96 fL (80-100); Mean Platelet Volume 10.9 fL (9.1-12.4); NEUTROPHILS PERCENT AUTO 74 % (41-73); Platelet Count 250 K/mm3 (150-400); RDW Coefficient Variation 15.5 % (11.7-14.2); RDW Standard Deviation 55.2 fL (35.1-46.3); Red Blood Cell Count 4.42 M/mm3 (3.80-5.20); White Blood Cell Count 6.13 K/mm3 (4.00-11.30)
[2022-11-11 02:24] LABS: International Normalized Ratio 1.2; Prothrombin Time Results 12.5 Sec (9.7-11.5)
[2022-11-11 02:27] LABS: Albumin, Blood 2.6 g/dL (3.4-5.0); Albumin/Globulin Ratio 0.8 (0.8-1.8); Bilirubin, Total 0.8 mg/dL (0.1-1.0); Bun/Creatinine Ratio 28.7 (12.0-20.0); Creatinine, Blood 0.8 mg/dL (0.40-1.00); Globulin, Blood 3.3 g/dL (2.2-4.0); Potassium, Blood 4.2 mmol/L (3.5-5.5); Total Protein, Blood 5.9 g/dL (6.4-8.2)
[2022-11-11 04:03] LABS: C-Reactive Protein, High Sens. 8.24 mg/L (0.000-3.000)
[2022-11-11 15:24] VITALS: BP 118/95
[2022-11-11] MEDS ORDERED: CALCIUM 500 MG1 EAC2 PO (15:31)
[2022-11-11 19:28] VITALS: BP 109/74
--- NOTE | 2022-11-11 19:29 | NUR ---
PT ARRIVED TO THE UNIT. ORIENTED TO THE ROOM. DR. GRACIA SPOKE TO NEPHEW ON THE PHONE. AMBULATED TO THE RESTROOM. HER BED IS IN THE LOW POSITON AND CALL LIGHT IS WITIN REACH.
--- NOTE | 2022-11-12 04:19 | NUR ---
SHIFT SUMMARY PATIENT WITH NO ACUTE EVENTS OVERNIGHT. SHE DENIES ANY PAIN THROUGH SHIFT. NPO AT MIDNIGHT. BED IN LOW POSITION WITH BED ALARM ON. PATIENT SLEEPING THROUGH THE NIGHT BUT AROUSABLE.
[2022-11-12 04:59] VITALS: BP 114/85
[2022-11-12 07:21] VITALS: BP 100/73
[2022-11-12 08:20] LABS: Hematocrit 41.3 % (33.0-51.0); Hemoglobin 13.8 g/dL (11.5-16.0); Mean Corpuscular HGB 32.3 pg (26.0-34.0); Mean Corpuscular HGB Conc 33.4 g/dL (31.5-36.5); Mean Corpuscular Volume 97 fL (80-100); Mean Platelet Volume 10.1 fL (9.1-12.4); Platelet Count 193 K/mm3 (150-400); RDW Coefficient Variation 15.4 % (11.7-14.2); RDW Standard Deviation 54.5 fL (35.1-46.3); Red Blood Cell Count 4.27 M/mm3 (3.80-5.20); White Blood Cell Count 6.03 K/mm3 (4.00-11.30)
[2022-11-12 08:33] LABS: International Normalized Ratio 1.25
[2022-11-12 08:42] LABS: Bun/Creatinine Ratio 21.9 (12.0-20.0); Calcium, Blood 8.2 mg/dL (8.5-10.1); Creatinine, Blood 0.82 mg/dL (0.40-1.00); Potassium, Blood 3.9 mmol/L (3.5-5.5)
[2022-11-12 15:30] VITALS: BP 103/74
--- NOTE | 2022-11-12 18:29 | NUR ---
SHIFT SUMMARY PT AOX4, SBA TO THE BATHROOM. CALLS WELL AND MAKES HER NEEDS KNOWN. DRAIN PLACEMENT WILL OCCUR TOMORROW AM. SHE IS TO GO NPO AT MIDNIGHT TONIGHT. NO COMPLAINTS OF P/N/V/D/CP THIS SHIFT. HER NEPHEW IS AWARE OF ALL UPDATED INFORMATION. CALL LIGHT WITHIN REACH, BED IN THE LOWEST POSITION. WILL REPORT TO ONCOMING NURSE.
[2022-11-12 19:50] VITALS: BP 103/81
[2022-11-13] VITALS (16 sets, daily range): BP systolic 101–138; BP diastolic 57–114
[2022-11-13 06:21] LABS: Bun/Creatinine Ratio 24.1 (12.0-20.0); Calcium, Blood 8.2 mg/dL (8.5-10.1); Creatinine, Blood 0.79 mg/dL (0.40-1.00); Potassium, Blood 3.7 mmol/L (3.5-5.5)
--- NOTE | 2022-11-13 06:45 | NUR ---
SHIFT SUMMARY PATIENT WITH NO ACUTE EVENTS OVERNIGHT. SHE TOOK HER PILLS WHOLE AND DENIES ANY ISSUES. BED ALARM [employer] LAW ASSOCIATE LIGHT IN REACH. PATIENT CALLS APPROPRIATELY. WILL CONTINUE TO MONITOR.
--- NOTE | 2022-11-13 08:27 | NUR ---
PT HAS 20G IN L HAND THAT SHOWS NO SIGNS OF INFILTRATION. NO SWELLING, REDNESS, DRAINAGE NOTED.
--- NOTE | 2022-11-13 08:56 | NUR ---
PT HAS DIMINISHED LUNG SOUNDS IN BILATERAL BASES, WHEEZES IN L UPPER LUNG LOBE.
--- NOTE | 2022-11-13 10:13 | NUR ---
11/13/22 Sean3 SUKHWINDER GOODSON 10ML OF LIDOCAINE 1% WAS ADMINISTERED TO OPSITE BY DR. BRADEN.
[2022-11-13 10:52] LABS: Automated BF RBC Count 0.115 M/mm3 (0-0); Automated BF WBC Count 2.461 K/mm3 (0-999)
[2022-11-13 10:58] LABS: Body Fluid WBC Count 2461 /mm3 (0-999); RBC Count, Body Fluid 115000 /mm3 (0-0)
[2022-11-13 11:00] LABS: Appearance, Body Fluid Turbid (Clear); Color, Body Fluid Red (None-Yellow)
[2022-11-13 11:25] LABS: Albumin, Body Fluid 1.9 g/dL; Glucose, Body Fluid 55 mg/dL; Lactate Dehydrogenase, Body Fl 576 U/L; Protein, Body Fluid 3.7 g/dL
[2022-11-13 11:58] LABS: Total Cell Count, Body Fluid 100
--- NOTE | 2022-11-13 14:40 | NUR ---
Pt being D/C and PleurX drain placed today. Pt resting in bed upon arrival. Pt reports mild and manageable pain and denies need for pain medication. Pt's nephew at bedside. Had nephew watch video on PleurX drain. Nephew reports understanding of video and states being a quick learner. Plan for HH to come to Pt's house this weekend and resume care. Provided Pt with PleurX drain starter kit. No concerns reported at this time. Palliative Care will remain available
--- NOTE | 2022-11-13 15:58 | NUR ---
DISCHARGE: PT D/C @1550 VIA WHEELCHAIR WITH NEPHEW TRAVIS. MEDICATIONS FAXED TO [facility]. IV REMOVED BY VICENTE GUAJARDO. NO PAIN IN PLEURX SITE. MORENITA IN PALLIATIVE CARE ARRIVED TO DISCUSS PLEURX BY WATCHING A VIDEO AND ANSWERING ALL QUESTIONS PATIENT AND NEPHEW HAD. SITE C/D/I. TELE SENT BACK TO PCU. HOME HEALTH TO FOLLOW-UP WITH PT. PT TO SEE PRIMARY NEXT AVAILABLE APT. NEPHEW STATED DR. ROGER WOULD BE CALLING TO SCHEDULE ONCOLOGY APT. QUESTIONS ANSWERED TO THE BEST OF MY ABILITY.
--- NOTE | 2022-11-13 16:08 | NUR ---
HOME 02 EVAL COMPLETED PRIOR TO D/C. NO 02 NEEDS AT THIS TIME.
== END 2022-11-13 15:54 | disposition home health service (06) | DRG 840 ==
LOC: ER 19:18 → MEDS 11-11 03:24 → ERHOLD 11-11 03:24 → MEDS 11-11 15:19 → ENPENDDIS 11-13 13:07 → MEDS 11-13 15:54
PROVIDERS: Emergency Medicine; Family Medicine Adult Medicine; Internal Medicine; Physician Assistant; Surgery; ADMIT Internal Medicine
PROC: 0W9B3ZZ Drainage of Left Pleural Cavity, Percutaneous Approach (ICD-10-PCS; principal; 2022-11-13 08:30)
DX: C85.10 Unspecified B-cell lymphoma, unspecified site (principal); J96.01 Acute respiratory failure with hypoxia; J91.0 Malignant pleural effusion; I50.22 Chronic systolic (congestive) heart failure; I13.0 Hypertensive heart and chronic kidney disease with heart failure and stage 1 through stage 4 chronic kidney disease, or unspecified chronic kidney disease; J98.11 Atelectasis; D01.7 Carcinoma in situ of other specified digestive organs; I48.91 Unspecified atrial fibrillation; E78.5 Hyperlipidemia, unspecified; N18.30 Chronic kidney disease, stage 3 unspecified; F03.A0 Unspecified dementia, mild, without behavioral disturbance, psychotic disturbance, mood disturbance, and anxiety; E86.0 Dehydration; Z79.899 Other long term (current) drug therapy; Z79.01 Long term (current) use of anticoagulants; Z86.73 Personal history of transient ischemic attack (TIA), and cerebral infarction without residual deficits; Z98.49 Cataract extraction status, unspecified eye
CPT/HCPCS: 36415; 71260; 74176; 80048; 80053; 82042; 82945; 83605; 83615; 83880; 84145; 84157; 84484; 85025; 85027; 85610; 85651; 85730; 86141; 87070; 87075; 87077; 87186; 87205; 88108; 88305; 89051; 93005; 93010; 94761; 96374; 99285-25; A9270; C1729; J0690; J1100; J2371; J2405; J2704; J3010; J7120; Q9967

== ENCOUNTER 2022-12-21 13:42 | Inpatient (IN) | payer OTHER ==
[~2022-12-21] VITALS: Ht 142.2 cm; Wt 54.2 kg
[2022-12-21 14:28] LABS: Hematocrit 38.9 % (33.0-51.0); Hemoglobin 12.7 g/dL (11.5-16.0); Mean Corpuscular HGB 32.8 pg (26.0-34.0); Mean Corpuscular HGB Conc 32.6 g/dL (31.5-36.5); Mean Corpuscular Volume 101 fL (80-100); Mean Platelet Volume 12.6 fL (9.1-12.4); NRBC ABSOLUTE 0.14 K/mm3 (0.00-0.02); NRBC Auto 0.9 /100 WBC (0.0-0.2); Platelet Count 162 K/mm3 (150-400); RDW Coefficient Variation 16.7 % (11.7-14.2); RDW Standard Deviation 60.5 fL (35.1-46.3); Red Blood Cell Count 3.87 M/mm3 (3.80-5.20)
[2022-12-21 15:02] LABS: BAND PERCENT MAN 18 % (0-8); BASOPHILS ABSOLUTE MAN 0.15 K/mm3 (0.00-0.23); BASOPHILS PERCENT MAN 1 % (0-2); EOSINOPHILS PERCENT MAN 0 % (0-6); LYMPHOCYTES % ATYPICAL MANUAL 1 % (0-0); LYMPHOCYTES ABSOLUTE MAN 0.47 K/mm3 (0.84-5.20); LYMPHOCYTES PERCENT MAN 2 % (21-46); METAMYELOCYTE ABSOLUTE MAN 0.79 K/mm3 (0.00-0.00); METAMYELOCYTE PERCENT MAN 5 % (0-0); MONOCYTES PERCENT MAN 0 % (4-13); MYELOCYTE ABSOLUTE MAN 0.47 K/mm3 (0.00-0.00); MYELOCYTE PERCENT MAN 3 % (0-0); SEG NEUTROPHILS PERCENT MAN 70 % (41-73); TOTAL CELLS COUNTED 100
[2022-12-21 15:07] LABS: Albumin, Blood 2.4 g/dL (3.4-5.0); Albumin/Globulin Ratio 0.5 (0.8-1.8); Bilirubin, Total 0.8 mg/dL (0.1-1.0); Bun/Creatinine Ratio 41.3 (12.0-20.0); Calcium, Blood 9.7 mg/dL (8.5-10.1); Creatinine, Blood 0.92 mg/dL (0.40-1.00); Total Protein, Blood 7.4 g/dL (6.4-8.2)
[2022-12-21 17:32] LABS: Digoxin (Lanoxin) 1.16 ug/mL (0.80-2.00)
[2022-12-21 18:11] VITALS: BP 137/102
--- NOTE | 2022-12-21 18:36 | NUR ---
ADMIT PT BROUGHT TO UNIT FROM ER VIA NATHANRJAYDA ON BIPAP. BIPAP SETTING 10/6 60% FIO2. BREATHING IS LABORED AND RR 30'S. 02 SATS AT 90-93%. PLEUREX CHEST TUBE NOTED TO LEFT SIDE. PER REPORT IT WAS DRAINED IN THE ER. BP STABLE. HR AFIB 100'S. DIFFICULT TO ASSESS ORIENTATION PT CAN ONLY SPEAK IN SHORT ONE WORD ANSWERS FROM WORK OF BREATHING. PT INCONTINENT OF BOWEL AND BLADDER UPON ADMISSION AND CLEANED WITH NEW ATTENDS PLACED. PUREWICK IN PLACE FOR INCONTINENCE. EXCORIATIONS NOTED TO BUTTOX AND SMALL AMOUNT OF BRIGHT RED BLOOD NOTED ON ATTENDS. PICTURES TAKEN AND BARRIER CREAM APPLIED. PT ORIENTED TO UNIT AND CALL LIGHT. WILL CONTINUE TO MONITOR CLOSELY AND REPORT TO ONCOMING RN
[2022-12-21 19:35] VITALS: BP 118/89
--- NOTE | 2022-12-21 23:00 | NUR ---
ASSUMPTION OF CARE THIS RN ASSUMED CARE AT APPROX 1915. PATIENT IS ALERT AND ORIENTED X3-4. IS ABLE TO REPORT NAME, DATE OF , THE DATE, AND LOCATION. UNCLEAR TO CURRENT SITUATION, ASKS QUESTIONS NEEDED TO GAIN UNDERSTANDING. IS MOSTLY ONLY ABLE TO COMMUNICATE IN ONE WORD STATEMENTS DUE TO SHORTNESS OF BREATH. VSS. TELEMETRY SHOWING AFIB 90's-100's. BP STABLE. DENIES CHEST PAIN OR PRESSURE. IS ON BIPAP 11/13 FI02 60%, SATS >90%. RESPIRATIONS IN THE 30's. PLEURX CHEST TUBE ON L CHEST WALL. RECEIVED IN REPORT THAT IT WAS DRAINED IN THE ED PRIOR TO ARRIVAL AND THAT IT IS NORMALLY DRAINED X1 PER WEEK. PUREWICK IN PLACE, DRAINING YELLOW URINE TO SUCTION. ATTENDS IN PLACE. RED, EXCORIATION NOTED ON BUTTOCKS. REPOSITIONING REGULARLY. CALL LIGHT IN REACH.
[2022-12-21 23:19] VITALS: BP 126/93
[2022-12-22 03:36] VITALS: BP 111/62
--- NOTE | 2022-12-22 04:24 | NUR ---
SHIFT SUMMARY NO ACUTE CHANGES SINCE PREVIOUS NOTE. PATIENT REMAINS ALERT AND ORIENTED X3-4. LETHARGIC, SLEPT THROUGHOUT. EASILY AROUSABLE TO VERBAL STIMULI. ABLE TO COMMUNICATE NEEDS EFFECTIVELY. COOPERATIVE WITH CARE. VS REMAIN STABLE. TELEMETRY CONTINUING TO SHOW AFIB. RATE 80's-90's. BP STABLE. REMAINS ON BIPAP 11/13 FI02 60%, SATS >95%. RESPIRATIONS 20's-30's. DECREASED WORK OF BREATHING AT REST ASSESSED, DECREASED SHORTNESS OF BREATH WHILE SPEAKING. PLEURX CHEST TUBE ON L SIDE DRESSING REMAINS C/D/I, NO SHADOWING NOTED. REPOSITIONING REGULARLY. PUREWICK AND ATTENDS IN PLACE. VOIDING. NO BM THIS SHIFT. CALL LIGHT IN REACH. WILL REPORT TO ONCOMING RN.
[2022-12-22 06:13] LABS: BASOPHILS ABSOLUTE AUTO 0.01 K/mm3 (0.00-0.23); BASOPHILS PERCENT AUTO 0 % (0-2); EOSINOPHILS PERCENT AUTO 0 % (0-6); Hematocrit 28.7 % (33.0-51.0); Hemoglobin 9.7 g/dL (11.5-16.0); IMMATURE GRAN ABSOLUTE AUTO 0.16 K/mm3 (0.00-0.10); IMMATURE GRAN PERCENT AUTO 2 % (0-1); LYMPHOCYTES ABSOLUTE AUTO 0.05 K/mm3 (0.84-5.20); LYMPHOCYTES PERCENT AUTO 1 % (21-46); MONOCYTES ABSOLUTE AUTO 0.22 K/mm3 (0.16-1.47); MONOCYTES PERCENT AUTO 3 % (4-13); Mean Corpuscular HGB 32.7 pg (26.0-34.0); Mean Corpuscular HGB Conc 33.8 g/dL (31.5-36.5); Mean Corpuscular Volume 97 fL (80-100); Mean Platelet Volume 11.9 fL (9.1-12.4); NEUTROPHILS ABSOLUTE AUTO 7.16 K/mm3 (1.96-9.15); NEUTROPHILS PERCENT AUTO 94 % (41-73); NRBC ABSOLUTE 0.02 K/mm3 (0.00-0.02); NRBC Auto 0.3 /100 WBC (0.0-0.2); Platelet Count 82 K/mm3 (150-400); RDW Coefficient Variation 16.3 % (11.7-14.2); RDW Standard Deviation 56.7 fL (35.1-46.3); Red Blood Cell Count 2.97 M/mm3 (3.80-5.20)
[2022-12-22 06:50] LABS: Albumin, Blood 2.1 g/dL (3.4-5.0); Anion Gap 6 mmol/L (6-16); Blood Urea Nitrogen 45 mg/dL (8-24); Bun/Creatinine Ratio 43.3 (12.0-20.0); CO2, Blood 26 mmol/L (21-32); Calcium, Blood 9.4 mg/dL (8.5-10.1); Chloride, Blood 108 mmol/L (98-108); Creatinine, Blood 1.04 mg/dL (0.40-1.00); Glomerular Filtration Rate 55 (60-); Glucose, Blood 127 mg/dL (70-99); Phosphorus, Blood 5.9 mg/dL (2.5-4.9); Potassium, Blood 4.6 mmol/L (3.5-5.5); Sodium, Blood 140 mmol/L (136-145)
[2022-12-22 07:40] VITALS: BP 135/83
--- NOTE | 2022-12-22 11:17 | NUR ---
AM NOTES; PT WAS ABLE TO STAND AND TRANSFER TO COMMODE AND RECLIENR CHAIR THIS MORNING. PT REMAINED ALERT AND ORIENTED X3, VITALS HRR AFIB 90'S, SBP 130'S, AFEBRILE. PT GETS SOB WHEN LAYING FLAT. PT NOW ON 2L OF O2 VIA NASAL CANNULA, BIPAP REMAINED AT THE BEDSDIE FIO2 30%. PT ATE BREAKFAST WITH NO ISSUES. BED BATH AND ORAL CARE PROVIDED. PLEURIX DRAIN ON LEFT SIDE OF ABD. PT CONTINUES TO DIURESE. PT DENIES CHEST PAIN/PRESSURE. CURRENTLY UP IN THE RECLINER OF THIS TIME. PT CALLS APPROPRIATELY. CALL LIGHTS IN REACH WILL CONTINUE TO MONITOR
[2022-12-22 11:56] VITALS: BP 117/78
--- NOTE | 2022-12-22 12:58 | NUR ---
Upon receiving a referral for [facility], I visited the patient. She is sleeping in a chair and her great nephew, Brandt is present in the room. He shares with me about the patient's medical hsitory and states that the patient is not pentecostal and would decline a visit if she were awake. He then talks about his role as caregiver for her and about the challenges she has faced. I provide a calming presence and encourage self care for Brandt. I will continue to remain available.
[2022-12-22 16:00] VITALS: BP 113/76
[2022-12-22 20:00] VITALS: BP 117/86
--- NOTE | 2022-12-22 21:40 | NUR ---
ASSUMPTION OF CARE THIS RN ASSUMED CARE AT APPROX 1915. PATIENT IS ALERT AND ORIENTED X3-4. HEARING AIDS IN PLACE, REMAINS MILDLY ANIAK. SOFT SPEECH NOTED. ABLE TO COMMUNICATE NEEDS EFFECTIVELY NEEDED. AT ASSUMPTION OF CARE, PATIENT SITTING IN RECLINER CHAIR. ABLE TO AMBULATE WITH 1P ASSIST WITH FWW TO BSC TO VOID. ABLE TO TAKE PO EVENING MEDICATIONS WITH WATER, LARGER PILLS IN APPLESAUCE. TRANSFERRED TO HOSPITAL BED FOR SLEEP. EXPERIENCES INCONTINENCE, PUREWICK AND ATTENDS IN PLACE FOR NIGHT MANAGAMENT. IS MEDICAL STATUS WITH TELEMETRY. TELEMETRY SHOWING AFIB 100's. BP STABLE. DENIES CHEST PAIN OR PRESSURE. IS CURRENTLY ON 2L VIA NASAL CANNULA, SATS >90%. IS ON ROOM AIR AT BASELINE. BIPAP ON STAND BY AT THIS TIME. MILD SHORTNESS OF BREATH AT REST, INCREASES WITH ACTIVITY. WEAK, OCCASSIONALLY PRODUCTIVE COUGH NOTED. PLEURX DRESSING IS C/D/I. REPOSITIONING REGULARLY WHILE IN BED. CALL LIGHT IN REACH.
[2022-12-23 04:00] VITALS: BP 130/94
[2022-12-23 04:49] LABS: BASOPHILS ABSOLUTE AUTO 0.01 K/mm3 (0.00-0.23); BASOPHILS PERCENT AUTO 0 % (0-2); EOSINOPHILS PERCENT AUTO 0 % (0-6); Hematocrit 29.5 % (33.0-51.0); Hemoglobin 9.9 g/dL (11.5-16.0); IMMATURE GRAN ABSOLUTE AUTO 0.12 K/mm3 (0.00-0.10); IMMATURE GRAN PERCENT AUTO 2 % (0-1); LYMPHOCYTES ABSOLUTE AUTO 0.07 K/mm3 (0.84-5.20); LYMPHOCYTES PERCENT AUTO 1 % (21-46); MONOCYTES ABSOLUTE AUTO 0.36 K/mm3 (0.16-1.47); MONOCYTES PERCENT AUTO 5 % (4-13); Mean Corpuscular HGB 32.4 pg (26.0-34.0); Mean Corpuscular HGB Conc 33.6 g/dL (31.5-36.5); Mean Corpuscular Volume 96 fL (80-100); Mean Platelet Volume 12.1 fL (9.1-12.4); NEUTROPHILS ABSOLUTE AUTO 6.52 K/mm3 (1.96-9.15); NEUTROPHILS PERCENT AUTO 92 % (41-73); Platelet Count 92 K/mm3 (150-400); RDW Coefficient Variation 16.1 % (11.7-14.2); RDW Standard Deviation 56.1 fL (35.1-46.3); Red Blood Cell Count 3.06 M/mm3 (3.80-5.20); White Blood Cell Count 7.08 K/mm3 (4.00-11.30)
[2022-12-23 05:32] LABS: Bun/Creatinine Ratio 50.8 (12.0-20.0); Calcium, Blood 9.1 mg/dL (8.5-10.1); Creatinine, Blood 1.24 mg/dL (0.40-1.00); Potassium, Blood 5.1 mmol/L (3.5-5.5)
--- NOTE | 2022-12-23 05:35 | NUR ---
SHIFT SUMMARY NO ACUTE CHANGES SINCE ASSUMPTION OF CARE NOTE. PATIENT REMAINS ALERT AND ORIENTED X3-4. COOPERATIVE WITH CARE, ABLE TO COMMUNICATE NEEDS NEEDED. SLEPT THROUGHOUT SHIFT, IS CURRENTLY SITTING IN RECLINER CHAIR. VS REMAIN STABLE. TELEMETRY CONTINUING TO SHOW AFIB 80's-100's. BP STABLE. OXYGEN INCREASE TO 5L VIA NASAL CANNULA WHILE IN A DEEP SLEEP, SATS 88-90%. ABLE TO TITRATE BACK DOWN TO 2L VIA NASAL CANNULA, SATS >90%. PLEURX DRESSING REMAINS C/D/I. OCCASSIONAL COUGH NOTED. REPORTED 7/10 LEG PAIN, MANAGED PER EMAR WITH PO TYLENOL. FREQUENTLY REPOSITIONING. IS A 1P ASSIST OUT OF BED. PUREWICK INITIATED FOR NIGHT INCONTINENCE, REMOVED AT THIS TIME WHILE AWAKE IN RECLINER CHAIR. PULL UP ATTENDS IN PLACE. BM THIS SHIFT. CALL LIGHT IN REACH. WILL REPORT TO ONCOMING RN.
[2022-12-23 06:01] LABS: BAND PERCENT MAN 3 % (0-8); BASOPHILS PERCENT MAN 0 % (0-2); EOSINOPHILS PERCENT MAN 0 % (0-6); MONOCYTES ABSOLUTE MAN 0.14 K/mm3 (0.16-1.47); MONOCYTES PERCENT MAN 2 % (4-13); NEUTROPHILS ABSOLUTE MAN 6.93 K/mm3 (1.96-9.15); SEG NEUTROPHILS PERCENT MAN 95 % (41-73); TOTAL CELLS COUNTED 100
[2022-12-23 07:25] VITALS: BP 130/85
[2022-12-23 16:15] VITALS: BP 140/89
[2022-12-23 17:38] LABS: Digoxin (Lanoxin) 1.03 ug/mL (0.80-2.00)
[2022-12-23 20:04] VITALS: BP 136/80
[2022-12-24 04:40] VITALS: BP 126/88
[2022-12-24 05:24] LABS: BASOPHILS ABSOLUTE AUTO 0.01 K/mm3 (0.00-0.23); BASOPHILS PERCENT AUTO 0 % (0-2); EOSINOPHILS ABSOLUTE AUTO 0.03 K/mm3 (0.00-0.68); EOSINOPHILS PERCENT AUTO 0 % (0-6); Hemoglobin 9.5 g/dL (11.5-16.0); IMMATURE GRAN ABSOLUTE AUTO 0.06 K/mm3 (0.00-0.10); IMMATURE GRAN PERCENT AUTO 1 % (0-1); LYMPHOCYTES ABSOLUTE AUTO 0.05 K/mm3 (0.84-5.20); LYMPHOCYTES PERCENT AUTO 1 % (21-46); MONOCYTES ABSOLUTE AUTO 0.25 K/mm3 (0.16-1.47); MONOCYTES PERCENT AUTO 3 % (4-13); Mean Corpuscular HGB 32.2 pg (26.0-34.0); Mean Corpuscular HGB Conc 32.8 g/dL (31.5-36.5); Mean Corpuscular Volume 98 fL (80-100); Mean Platelet Volume 12.8 fL (9.1-12.4); NEUTROPHILS ABSOLUTE AUTO 7.93 K/mm3 (1.96-9.15); NEUTROPHILS PERCENT AUTO 95 % (41-73); Platelet Count 100 K/mm3 (150-400); RDW Coefficient Variation 15.9 % (11.7-14.2); RDW Standard Deviation 56.5 fL (35.1-46.3); Red Blood Cell Count 2.95 M/mm3 (3.80-5.20); White Blood Cell Count 8.33 K/mm3 (4.00-11.30)
--- NOTE | 2022-12-24 05:30 | NUR ---
ASSUMED CARE OF PT AT 1900 12/23/22. NO ACUTE CHANGES T/O THE SHIFT. PT RESTING WITH EYES CLOSED, RESPS EVEN AND UNLABORED, APPEARED TO BE SLEEPING MOST OF THE NIGHT. PT HAS HAD NO COMPLAINTS. OOB WITH SBA TO BSC, ALVIN PLACED D/T FREQUENT URINATION, URINE CLEAR, YELLOW WITH NO FOUL ODOR. NO NEEDS OR CONCERNS, PT ABLE TO USE CALL LIGHT FOR NEEDS. BED ALARM ON FOR SAFETY. WILL CONTINUE TO MONITOR AND GIVE REPORT TO ONCOMING RN.
[2022-12-24 06:03] LABS: BASOPHILS PERCENT MAN 0 % (0-2); EOSINOPHILS PERCENT MAN 0 % (0-6); MONOCYTES ABSOLUTE MAN 0.08 K/mm3 (0.16-1.47); MONOCYTES PERCENT MAN 1 % (4-13); NEUTROPHILS ABSOLUTE MAN 8.24 K/mm3 (1.96-9.15); SEG NEUTROPHILS PERCENT MAN 99 % (41-73); TOTAL CELLS COUNTED 100
[2022-12-24 06:31] LABS: Albumin, Blood 2.1 g/dL (3.4-5.0); Anion Gap 6 mmol/L (6-16); Blood Urea Nitrogen 65 mg/dL (8-24); Bun/Creatinine Ratio 64.4 (12.0-20.0); CO2, Blood 26 mmol/L (21-32); Calcium, Blood 8.8 mg/dL (8.5-10.1); Chloride, Blood 108 mmol/L (98-108); Creatinine, Blood 1.01 mg/dL (0.40-1.00); Digoxin (Lanoxin) 0.96 ug/mL (0.80-2.00); Glomerular Filtration Rate 57 (60-); Glucose, Blood 113 mg/dL (70-99); Phosphorus, Blood 3.1 mg/dL (2.5-4.9); Potassium, Blood 4.2 mmol/L (3.5-5.5); Sodium, Blood 140 mmol/L (136-145)
[2022-12-24 08:48] VITALS: BP 150/95
--- NOTE | 2022-12-24 16:39 | NUR ---
DISCHARGE HOME PT [place] W/ HEARING AIDS IN PLACE. PT A&O TO SELF, PLACE & FAMILY, FOLLOWING INSTRUCTIONS WHEN SHE'S ABLE TO HEAR THEM. PT VSS. SPO2 > 92% ON 2L NC. HOME O2 IN RM FOR PT. DISCHARGE INSTRUCTIONS REVIEWED W/ PT & PT NEPHEW WHO IS PT's REPORTED CAREGIVER. PIVs REMOVED & PT TAKEN OUT BY wastewater design engineer IN WC W/ BELONGINGS @ APPROX 1600.
== END 2022-12-24 16:15 | disposition home health service (06) | DRG 291 ==
LOC: ER 13:42 → PCU 13:43
PROVIDERS: Emergency Medicine; ADMIT Internal Medicine
PROC: 5A09357 Assistance with Respiratory Ventilation, Less than 24 Consecutive Hours, Continuous Positive Airway Pressure (ICD-10-PCS; principal; 2022-12-22)
DX: I13.0 Hypertensive heart and chronic kidney disease with heart failure and stage 1 through stage 4 chronic kidney disease, or unspecified chronic kidney disease (principal); I50.23 Acute on chronic systolic (congestive) heart failure; J96.01 Acute respiratory failure with hypoxia; C83.30 Diffuse large B-cell lymphoma, unspecified site; J91.0 Malignant pleural effusion; E87.5 Hyperkalemia; M81.0 Age-related osteoporosis without current pathological fracture; E78.5 Hyperlipidemia, unspecified; R73.9 Hyperglycemia, unspecified; D72.829 Elevated white blood cell count, unspecified; F43.9 Reaction to severe stress, unspecified; I48.91 Unspecified atrial fibrillation; N18.30 Chronic kidney disease, stage 3 unspecified; F03.A0 Unspecified dementia, mild, without behavioral disturbance, psychotic disturbance, mood disturbance, and anxiety; Z98.890 Other specified postprocedural states; Z86.73 Personal history of transient ischemic attack (TIA), and cerebral infarction without residual deficits; Z79.899 Other long term (current) drug therapy; Z79.01 Long term (current) use of anticoagulants; Z98.49 Cataract extraction status, unspecified eye
CPT/HCPCS: 36415; 71045; 80048; 80053; 80069; 80162; 83036; 83880; 84132; 84484; 85025; 93005; 93010; 94660; 94761; 94762; 96374; 97110; 97162; 97530; 99285-25; A9270; J1940

== ENCOUNTER → 2023-01-07 | Outpatient (CLI) | payer OTHER ==
[~2023-01-07] MED LIST changes: +JARDIANCE25 MG PO; +ONDA4ODT MM
[2023-01-07 13:28] LABS: Performing Lab CELLNETIX
== END | disposition home or self-care (01) ==
LOC: LAB SHORT 13:25 → LAB 13:25
PROVIDERS: Internal Medicine Hematology & Oncology
DX: C83.30 Diffuse large B-cell lymphoma, unspecified site (principal)
CPT/HCPCS: 88108; 88305; 88341; 88342

== ENCOUNTER 2023-01-14 12:14 | Inpatient (IN) | payer OTHER ==
[~2023-01-14] VITALS: Ht 147.3 cm; Wt 64.0 kg
[~2023-01-14 12:14] MED LIST changes: -JARDIANCE25 MG PO; -ONDA4ODT MM
[2023-01-14 12:57] LABS: BASOPHILS ABSOLUTE AUTO 0.03 K/mm3 (0.00-0.23); BASOPHILS PERCENT AUTO 0 % (0-2); EOSINOPHILS ABSOLUTE AUTO 0.01 K/mm3 (0.00-0.68); EOSINOPHILS PERCENT AUTO 0 % (0-6); Hematocrit 33.4 % (33.0-51.0); Hemoglobin 10.8 g/dL (11.5-16.0); IMMATURE GRAN ABSOLUTE AUTO 0.13 K/mm3 (0.00-0.10); IMMATURE GRAN PERCENT AUTO 1 % (0-1); LYMPHOCYTES ABSOLUTE AUTO 0.15 K/mm3 (0.84-5.20); LYMPHOCYTES PERCENT AUTO 1 % (21-46); MONOCYTES ABSOLUTE AUTO 0.29 K/mm3 (0.16-1.47); MONOCYTES PERCENT AUTO 2 % (4-13); Mean Corpuscular HGB 34.2 pg (26.0-34.0); Mean Corpuscular HGB Conc 32.3 g/dL (31.5-36.5); Mean Corpuscular Volume 106 fL (80-100); NEUTROPHILS PERCENT AUTO 96 % (41-73); Platelet Count 132 K/mm3 (150-400); RDW Standard Deviation 73.5 fL (35.1-46.3); Red Blood Cell Count 3.16 M/mm3 (3.80-5.20); White Blood Cell Count 13.71 K/mm3 (4.00-11.30)
[2023-01-14 13:17] LABS: Albumin, Blood 1.5 g/dL (3.4-5.0); Albumin/Globulin Ratio 0.4 (0.8-1.8); Bilirubin, Total 0.7 mg/dL (0.1-1.0); Creatinine, Blood 1.03 mg/dL (0.40-1.00); Globulin, Blood 4.2 g/dL (2.2-4.0); Total Protein, Blood 5.7 g/dL (6.4-8.2)
[2023-01-14 14:16] LABS: Digoxin (Lanoxin) 0.27 ug/mL (0.80-2.00)
[2023-01-14 15:05] LABS: Source, Urine Straight Cath
[2023-01-14 15:10] LABS: Influenza A, PCR NEGATIVE (NEGATIVE); Influenza B, PCR NEGATIVE (NEGATIVE); Resp Syncytial Virus, PCR NEGATIVE (NEGATIVE); SARS-Cov-2 (COVID-19) PCR, MMC NEGATIVE (NEGATIVE)
[2023-01-14 15:12] LABS: Appearance, Urine Clear (Clear); Bilirubin, Urine Neg (Neg); Blood, Urine Neg (Neg); Color, Urine Yellow (P-Yellow); Glucose Qualitative, Urine Neg (Neg); Ketones, Urine Neg (Neg); Leukocyte Esterase, Urine Neg (Neg); Nitrite, Urine Neg (Neg); Protein, Urine 1+ (Neg); Specific Gravity, Urine 1.015 (1.003-1.022); Urobilinogen, Urine NORM (Normal)
--- NOTE | 2023-01-14 15:54 | NUR ---
ED Palliative Care Consult Spoke with Dr Gunter and discussed case. Goals of care conversation may be beneficial. Pt resting on gurney upon arrival. Pt's nephew Brandt arrives. Pt appears weak and frail. Engaged in therapeutic conversation regarding goals of care. Listened as Brandt reports Pt has been mostly in bed for the last month. Pt's appetite has been poor and fluid intake also poor. Discussed potential options for treatment and option to consider comfort care. Pt reports being undecided at this time. Discussed code status wishes. Educated on life sustaining treatments including risks and implications to CPR/Intubation. Initially Pt states she did not want any heroic measures but then reports being undecided. Nephew Brandt assists with conversation. Dr Dimas in to examine Pt. Ended visit. Palliative Care will F/U with Pt once admitted to the floor.
[2023-01-14 17:10] VITALS: BP 107/74
--- NOTE | 2023-01-14 18:46 | NUR ---
SHIFT SUMMARY PT ADMITTED FROM EMERGENCY DEPARTMENT TO PCU AT APPROX 1710. PT ALERT AND ORIENTED TO PERSON, PLACE, AND SITUATION AND IS CONFUSED AT TIMES. PT ANSWERS QUESTIONS APPROPRIATELY. PT UNAWARE OF HEALTH HISTORY OR CURRENT MEDICATIONS SHE TAKE. PT AND ED NURSE REPORTS THAT PT NEPHEW IS PRIMARY CAREGIVER AND WAS PRESENT IN ED BUT LEFT PRIOR TO ADMIT. HEART RHYTHM AFIB RVR WITH HR IN 120S-130S. PT DENIES CP OR ABD PAIN. PT NOTED TO BE TACHYNEIC RR 26 ON 2L O2 VIA NC SPO2>92%. PT HAS PLEUREX DRAIN TO L LUNG. TO BEDSIDE FOR SURGICAL CONSULT AND CALLED FOR ONCOLOGY CONSULT. NO ACUTE CHANGES SINCE PT ADMITTED FROM ED.
[2023-01-14 20:20] VITALS: BP 104/70
[2023-01-14 23:42] VITALS: BP 99/57
[2023-01-15 03:13] VITALS: BP 127/113
--- NOTE | 2023-01-15 06:18 | NUR ---
SHIFT SUMMARY PATIENT ALERT AND ORIENTED X3, UNSURE OF DATE. BEDREST DUE TO INCREASED WEAKNESS. MEPILEX PLACED ON COCCYX, REPOSITIONING EVERY TWO HOURS AND REQUESTED BY PATIENT. MEDICATED PER EMAR FOR PAIN. PATIENT DENIES CHEST PAIN AND SHORTNESS OF BREATH. CURRENTLY ON 3 LITERS O2 VIA NASAL CANULA WITH SPO2 93%. BLOOD PRESSURE STABLE, AFIB ON TELE WITH HEART RATE RANGING FROM 110'S-140'S ON TELE. PATIENT REPORTS THAT SHE SLEPT WELL OVERNIGHT. WILL CONTINUE TO MONITOR. CALL LIGHT WITHIN REACH.
[2023-01-15 07:05] LABS: BASOPHILS ABSOLUTE AUTO 0.01 K/mm3 (0.00-0.23); BASOPHILS PERCENT AUTO 0 % (0-2); Hematocrit 25.6 % (33.0-51.0); Hemoglobin 8.1 g/dL (11.5-16.0); LYMPHOCYTES ABSOLUTE AUTO 0.13 K/mm3 (0.84-5.20); LYMPHOCYTES PERCENT AUTO 2 % (21-46); MONOCYTES ABSOLUTE AUTO 0.15 K/mm3 (0.16-1.47); MONOCYTES PERCENT AUTO 2 % (4-13); Mean Corpuscular HGB 33.2 pg (26.0-34.0); Mean Corpuscular HGB Conc 31.6 g/dL (31.5-36.5); Mean Corpuscular Volume 105 fL (80-100); Mean Platelet Volume 11.6 fL (9.1-12.4); Platelet Count 115 K/mm3 (150-400); RDW Standard Deviation 72.2 fL (35.1-46.3); Red Blood Cell Count 2.44 M/mm3 (3.80-5.20); White Blood Cell Count 8.52 K/mm3 (4.00-11.30)
[2023-01-15 07:06] LABS: EOSINOPHILS ABSOLUTE AUTO 0.04 K/mm3 (0.00-0.68); EOSINOPHILS PERCENT AUTO 1 % (0-6); IMMATURE GRAN ABSOLUTE AUTO 0.08 K/mm3 (0.00-0.10); IMMATURE GRAN PERCENT AUTO 1 % (0-1); NEUTROPHILS ABSOLUTE AUTO 8.11 K/mm3 (1.96-9.15); NEUTROPHILS PERCENT AUTO 95 % (41-73)
[2023-01-15 07:42] LABS: Digoxin (Lanoxin) 0.97 ug/mL (0.80-2.00); Magnesium, Blood 2.1 mg/dL (1.6-2.4)
[2023-01-15 07:43] LABS: Alanine Aminotransfer (ALT/SGP 26 U/L (12-78); Albumin, Blood 1.2 g/dL (3.4-5.0); Albumin/Globulin Ratio 0.3 (0.8-1.8); Alk Phos 87 U/L (50-136); Anion Gap 4 mmol/L (6-16); Aspartate Aminotrans (AST/SGOT 16 U/L (12-37); Bilirubin, Total 0.7 mg/dL (0.1-1.0); Blood Urea Nitrogen 68 mg/dL (8-24); Bun/Creatinine Ratio 74.1 (12.0-20.0); CO2, Blood 29 mmol/L (21-32); Calcium, Blood 8.6 mg/dL (8.5-10.1); Chloride, Blood 109 mmol/L (98-108); Creatinine, Blood 0.92 mg/dL (0.40-1.00); Globulin, Blood 3.5 g/dL (2.2-4.0); Glomerular Filtration Rate 64 (60-); Glucose, Blood 93 mg/dL (70-99); Potassium, Blood 4.6 mmol/L (3.5-5.5); Sodium, Blood 142 mmol/L (136-145); Total Protein, Blood 4.7 g/dL (6.4-8.2)
[2023-01-15 08:25] VITALS: BP 99/74
--- NOTE | 2023-01-15 08:35 | NUR ---
PT IS ALERT, DENIES PAIN, SHE IS SLOW TO ANSWER QUESTIONS. HR HAS RANGED FROM 120s-150s T/O THE NIGHT, PER NOC SHIFT THIS HAD NOT BEEN ADDRESSED T/O THE EVENING, THIS WAS AFFRESSED WITH DR GAGE THIS MORNING DECISION WAS MADE TO GIVE LOPRESSOR PUSH Q6H FOR HR GREATER THAN 130. RESIDENTS HAVE BEEN IN THE SEE PATIENT. SHE HAS A VERY SOFT COUGH, WITH NO INCREASED SOB, SHE REMAINS ON 3L O2 VIA NASAL CANNULA. SHE IS ABLE TO TALK WITH RESIDENTS AND THIS RN, BUT IS SLOW TO ANSWER, HE IS VERY [place]. SHE REMAINS A-SYMPTOMATIC TO HR
--- NOTE | 2023-01-15 10:24 | NUR ---
Brief supportive visit this AM. Pt resting in bed eating some jello. Pt reports significant pain in her abdomen but unable to rate on pain scale 1-10. She states severe. Brief and gentle discussion picked back up from yesterday regarding comfort care. Pt reports being undecided. Pt agreeable for this RN to return when her nephew arrives to visit. Spoke with Primary RN Nazanin and relayed Pt's pain. Palliative Care will remain available
--- NOTE | 2023-01-15 10:55 | NUR ---
PT WITH DARK DROWN TO BLACK LOOSE STOOLS, PT IS REPORTING ABD PAIN ABD REMAINS SIFT AND ROUND. DR GAGE CALLED AND UPDATED. HR HAS INCREASED TO 120-130s AT THIS TIME. PLEUREX DRESSING IS CHANGED THIS SHIFT
[2023-01-15 11:52] VITALS: BP 100/66
[2023-01-15] MEDS ORDERED: JARDIANCE25 MG PO (12:41)
[2023-01-15] MEDS ORDERED: POTA10T PO ×2 (12:44→12:45)
[2023-01-15] MEDS ORDERED: ONDA4ODT MM (12:44)
[2023-01-15] MEDS ORDERED: CEFU500T30 PO (12:45)
[2023-01-15 12:46] LABS: Hematocrit 24.2 % (33.0-51.0); Hemoglobin 7.6 g/dL (11.5-16.0)
--- NOTE | 2023-01-15 13:10 | NUR ---
F/U visit this afternoon. Pt resting in bed on her side and appears mildly dyspneic as evidenced by respiratory effort. Pt denies dyspnea at this time. Pt appears lethargic and weak. Pt's nephew Brandt (HProxy) is at bedside. Reviewed plan of care and continued goals of care conversation. Discussed Pt's multiple health concerns. Educated on disease process including trajectory. Discussed comfort care and hospice. Pt is limited in her responses and inquires with Brandt on his opinion. Brandt is requesting current plan of care. Discussed considering continued antibiotics and implementing comfort care. Brandt reports he will revisit goals of care with Pt as needed. Spoke with Primary RN Nazanin and discussed case. Palliative Care will remain available
--- NOTE | 2023-01-15 13:25 | NUR ---
"Spiritual Care Visit | Pt. request Pt. is awake in bed. Grand-nephew is present and welcomes my visit. Facilitate a life review. Pt. displays evidence of confusion, and Grand-nephew speaks on her behalf. Facilitate a short life review. With families permission, prayed for the Pt. and will remain available to the Pt. and family. Grand-nephew verbalizes gratitude for the spiritual care visit."
[2023-01-15 14:28] LABS: Hemoglobin 7.7 g/dL (11.5-16.0)
[2023-01-15 14:55] LABS: IMMATURE RETIC FRACTION 19.2 % (2.3-16.0); RETIC HGB EQUIVALENT 33.6 pg (28.20-36.60); RETICULOCYTE ABSOLUTE 0.0452 M/mm3 (0.0200-0.1100); RETICULOCYTE COUNT PERCENT 1.94 % (0.50-2.50)
[2023-01-15 15:04] LABS: Percent Saturation 6.8 % (15.0-50.0)
[2023-01-15 17:17] VITALS: BP 87/73
--- NOTE | 2023-01-15 18:10 | NUR ---
PT HAS BEEN RESTING WELL IN BED, WITH Q2 HOURS TURNS. HER STOOLS ARE LOOSE, THEY HAVE WENT FROM DARK BROWN TO BLACK DURING THIS SHIFT. HER HEART RATE HAS BEEN INTERMITTENTLY CONTROLLED THEY RANGE FROM 90-130. HER PRESSURES ARE SOFT T/O THE DAY. SHE DID REPORT SOME ABD PAIN WHICH WAS WELL CONTROLLED WITH TYLENOL PO. HER DIET WAS CHANGED BY DR ORTIZ FROM NPO TO CLEAR LIQUIDS. SHE REMAINS IN AFIB, DENIES CP, SHE DENIES INCREASE IN SOB. SHE HAS NOTED 2+ EDEMA TO BUE AND BLE. SHE IS ALERT, SHE ANSWERS MOST QUESTIONS APPROPRIATELY BUT SHE IS VERY DIFFICULT TO UNDERSTAND.
[2023-01-15 20:11] VITALS: BP 89/55
[2023-01-15 20:20] LABS: Hematocrit 25.4 % (33.0-51.0); Hemoglobin 7.9 g/dL (11.5-16.0)
[2023-01-15 21:21] VITALS: BP 122/91
[2023-01-16] VITALS (13 sets, daily range): BP systolic 84–130; BP diastolic 53–95
[2023-01-16 03:32] LABS: Hematocrit 25.6 % (33.0-51.0); Hemoglobin 8.1 g/dL (11.5-16.0); Mean Corpuscular HGB 33.1 pg (26.0-34.0); Mean Corpuscular HGB Conc 31.6 g/dL (31.5-36.5); Mean Corpuscular Volume 105 fL (80-100); Mean Platelet Volume 11.3 fL (9.1-12.4); Platelet Count 130 K/mm3 (150-400); RDW Coefficient Variation 18.8 % (11.7-14.2); RDW Standard Deviation 71.8 fL (35.1-46.3); Red Blood Cell Count 2.45 M/mm3 (3.80-5.20); White Blood Cell Count 9.43 K/mm3 (4.00-11.30)
[2023-01-16 04:11] LABS: Albumin, Blood 1.3 g/dL (3.4-5.0); Albumin/Globulin Ratio 0.4 (0.8-1.8); Bilirubin, Total 0.8 mg/dL (0.1-1.0); Calcium, Blood 8.3 mg/dL (8.5-10.1); Creatinine, Blood 0.92 mg/dL (0.40-1.00); Globulin, Blood 3.6 g/dL (2.2-4.0); Potassium, Blood 4.6 mmol/L (3.5-5.5); Total Protein, Blood 4.9 g/dL (6.4-8.2)
[2023-01-16 04:26] LABS: BAND PERCENT MAN 5 % (0-8); BASOPHILS PERCENT MAN 0 % (0-2); EOSINOPHILS PERCENT MAN 0 % (0-6); LYMPHOCYTES ABSOLUTE MAN 0.47 K/mm3 (0.84-5.20); LYMPHOCYTES PERCENT MAN 5 % (21-46); MONOCYTES ABSOLUTE MAN 0.18 K/mm3 (0.16-1.47); MONOCYTES PERCENT MAN 2 % (4-13); NEUTROPHILS ABSOLUTE MAN 8.76 K/mm3 (1.96-9.15); SEG NEUTROPHILS PERCENT MAN 88 % (41-73); TOTAL CELLS COUNTED 100
--- NOTE | 2023-01-16 06:57 | NUR ---
SHIFT SUMMARY PATIENT ALERT AND ORIENTED X4. HAD NO COMPLAINTS OF PAIN OR SHORTNESS OF BREATH. ON ROOM AIR WITH SPO2 >90%. VITAL SIGNS STABLE, SINUS RHYTHM ON TELE. NO ACUTE ISSUES NOTED OVERNIGHT. WILL CONTINUE TO MONITOR. CALL LIGHT WITHIN REACH.
[2023-01-16 08:27] LABS: Stool Occult Blood Guaiac 1 Pos (Neg)
--- NOTE | 2023-01-16 17:44 | NUR ---
PT HAD SOME COMPLAINTS OF ABD PAIN THIS MORNING WHICH WAS WELL TREATED WITH TYLENOL. SHE HAS SOME LOOSE STOOLS TODAY WHICH WERE DARK BROWN. HER HEART RATE IS BETTER CONTROLLED TODAY WITH RATE RANGING FROM 90s-110s. SHE DENIES INCREASED SOB, DENIES CP. SHE WAS ABLE TO GET UP TO BEDSIDE CHAIR WITH PHYSICAL THERAPY TODAY. PALLIATIVE CARE IS FOLLOWING PATIENT, THERE IS NO CHANGE IN CODE STATUS. SHE ALERT, SHE REMAINS SLOW TO ANSWER QUESTIONS BUT SEEMS MORE COHERENT TODAY. HER BLOOD PRESSURES REMAIN SOFT, WITH MAPS GREATER THAN 65.
[2023-01-17 03:00] VITALS: BP 105/70
[2023-01-17 04:18] LABS: Hemoglobin 7.6 g/dL (11.5-16.0); Mean Corpuscular HGB Conc 31.7 g/dL (31.5-36.5); Mean Corpuscular Volume 104 fL (80-100); Mean Platelet Volume 11.3 fL (9.1-12.4); Platelet Count 128 K/mm3 (150-400); RDW Coefficient Variation 18.6 % (11.7-14.2); RDW Standard Deviation 70.6 fL (35.1-46.3); White Blood Cell Count 7.92 K/mm3 (4.00-11.30)
[2023-01-17 04:50] LABS: Digoxin (Lanoxin) 0.63 ug/mL (0.80-2.00)
[2023-01-17 04:51] LABS: Anion Gap 5 mmol/L (6-16); Blood Urea Nitrogen 44 mg/dL (8-24); Bun/Creatinine Ratio 48.5 (12.0-20.0); CO2, Blood 27 mmol/L (21-32); Calcium, Blood 7.9 mg/dL (8.5-10.1); Chloride, Blood 109 mmol/L (98-108); Creatinine, Blood 0.91 mg/dL (0.40-1.00); Glomerular Filtration Rate 65 (60-); Glucose, Blood 111 mg/dL (70-99); Sodium, Blood 141 mmol/L (136-145)
--- NOTE | 2023-01-17 05:04 | NUR ---
END OF SHIFT NOTE: PT A&O X3-4 T/O SHIFT, ABLE TO CALL APPROPRIATELY AND COMMUNICATE NEEDS W/ STAFF. SPEECH IS SOFT AND DELAYED, BUT PT IS ABLE TO ANSWER QUESTIONS APPROPRIATELY. COOPERATIVE W/ CARE OVERNIGHT. HR STABLE, 100-110'S. HR UP TO 140'S W/ MOVEMENT OR W/ DISCOMFORT. AFIB ON TELE. SBP >100, MAP >65. SPO2 >90% ON 2.5L VIA NC, OCCASIONAL DESATS INTO 80 S W/ RECOVERY ON 4-6L. RR 20'S. 2 SOFT BM'S OVERNIGHT, LIGHT BROWN/ORANGE IN COLOR. REPOSITIONED Q2HR AND PRN. BLE ELEVATED ON PILLOWS, HERBER HOSE REMOVED THIS AM DUE TO C/O PAIN. NO OTHER EVENTS. CALL LIGHT WITHIN REACH, BED IN LOWEST POSITION. WILL REPORT TO ONCOMING RN.
[2023-01-17 08:24] VITALS: BP 110/80
[2023-01-17 11:41] VITALS: BP 122/79
--- NOTE | 2023-01-17 17:43 | NUR ---
Shift Summary Pt alert, oriented x3; calm and cooperative with care. Pt is [place] and has bilateral hearing aid, batteries changed this am. Pt denies pain, chest pain, dizziness and numb/tingling. Tele afib 80-90's for majority of shift, occasionally 120-140's, bp stable. Spo2 >90% on 4l o2 via nc this am, titrated down to 1-2l o2 vianc this evening, sob noted with activity. Abd, mild distender, nontender, +bt t/o. Other vss. No other acute changes noted. Will continue to monitor.
[2023-01-17 19:31] VITALS: BP 144/68
[2023-01-17 20:16] VITALS: BP 107/70
[2023-01-18] VITALS (9 sets, daily range): BP systolic 103–120; BP diastolic 62–80
[2023-01-18 03:59] LABS: Hematocrit 21.8 % (33.0-51.0); Hemoglobin 6.9 g/dL (11.5-16.0); Mean Corpuscular HGB Conc 31.7 g/dL (31.5-36.5); Mean Corpuscular Volume 107 fL (80-100); Mean Platelet Volume 10.9 fL (9.1-12.4); Platelet Count 111 K/mm3 (150-400); RDW Coefficient Variation 18.4 % (11.7-14.2); RDW Standard Deviation 73.2 fL (35.1-46.3); Red Blood Cell Count 2.03 M/mm3 (3.80-5.20); White Blood Cell Count 6.43 K/mm3 (4.00-11.30)
[2023-01-18 04:14] LABS: Albumin, Blood 1.2 g/dL (3.4-5.0); Anion Gap 4 mmol/L (6-16); Blood Urea Nitrogen 35 mg/dL (8-24); Bun/Creatinine Ratio 43.8 (12.0-20.0); CO2, Blood 30 mmol/L (21-32); Calcium, Blood 7.7 mg/dL (8.5-10.1); Chloride, Blood 110 mmol/L (98-108); Glomerular Filtration Rate 75 (60-); Glucose, Blood 102 mg/dL (70-99); Phosphorus, Blood 2.1 mg/dL (2.5-4.9); Potassium, Blood 3.9 mmol/L (3.5-5.5); Sodium, Blood 144 mmol/L (136-145)
--- NOTE | 2023-01-18 06:53 | NUR ---
UPDATE MORNING LABS INDICATED Hgb HAD DROPPED TO 6.9. DR. GRACIA NOTIFIED WITH ORDERS TO ADMINISTET 1 UNIT OF PRBC'S. NO OTHER ORDERS AT THIS TIME
--- NOTE | 2023-01-18 06:55 | NUR ---
SHIFT SUMMARY A/Ox3-4 AND COOPERATIVE WITH CARE. ANSWERS MOST QUESTIONS APPROPRIATELY/MAKE HER NEEDS KNOWN, BUT CAN BE HARD TO UNDERSTAND AT TIMES. CARDIAC, REMAINS IN AFIB RANGING 90-110 S WITH NO REPORTS OF CP, PRESSURE, OR PALPITATIONS. SBP HAS BEEN STABLE RANGING 100 A T/O THE NIGHT. RESPIRATORY, MAINTAINS SPO2 >95% ON 2L VIA NC. DENIES SOB OR DYSPNEA AT REST AND IS ABLE TO SPEAK IN FULL SENTENCES. INCREASED WORK OF BREATHING NOTED WITH MILD EXERTION HOWEVER. GI/, PUREWICK IN PLACE DRAINING ERIC COLORED URINE TO SUCTION. 1xBM THIS SHIFT WITH NO SIGNS OF MELENA/TARRY STOOL. REDNESS NOTED ON COCCYX WITH NEW MEPILEX DRESSING APPLIED. EXCORIATION ALSO NOTED AROUND BUTTOCKS WITH BARRIER CREAM APPLIED TO SITE. PLEURX DRAIN REMAINS IN PLACE WITH INTACT DRESSING. ASSESSED PT FOR RISKS OF ANY IGNITION SOURCES WELL BEHAVIORS FOR INCREASED RISKS OF FIRE DANGER. PT EDUCATED ON COMMON SOURCES OF IGNITION WELL NEED TO KEEP A SAFE ENVIRONMENT. PT VOICED UNDERSTANDING. NO NEW ORDERS AT THIS TIME, WILL REPORT TO ONCOMING RN. GERI HORNE OF THIS NOTE
--- NOTE | 2023-01-18 08:47 | NUR ---
AM NOTE PT ALERT, ORIENTED X2-3, CALM AND COOPERATIVE WITH CARE. PT RESTING IN BED, UP WITH 1 PERSON ASSISTS TO RECLINER. PT DENIES PAIN, CHEST PAIN/PRESSURE, SOB, NAUSEA, DIZZINESS AND NUMB/TINGLING. ABD DISTENDED, FIRM ON PALP, +BT T/O. TELE AFIB 90-110'S, BP STABLE. SPO2 >90% ON 2L O2 VIA NC. EDEMA NOTED TO BLE AND BUE. 1 UNIT PRBC STARTED THIS AM. OTHER VSS. WILL CONTINUE TO MONITOR.
[2023-01-18 12:23] LABS: Hematocrit 27.5 % (33.0-51.0); Hemoglobin 8.7 g/dL (11.5-16.0)
[2023-01-18 17:12] LABS: Digoxin (Lanoxin) 0.97 ug/mL (0.80-2.00)
--- NOTE | 2023-01-18 17:24 | NUR ---
Shift Summary Pt received 1unit PRBC, appears to have tolerated well. Pt NPO for EGD, Dr Sandhu consulted. Vss. No other acute changes noted. Will continue to monitor.
[2023-01-19] VITALS (7 sets, daily range): BP systolic 114–128; BP diastolic 79–98
[2023-01-19 03:50] LABS: BASOPHILS ABSOLUTE AUTO 0.01 K/mm3 (0.00-0.23); BASOPHILS PERCENT AUTO 0 % (0-2); EOSINOPHILS ABSOLUTE AUTO 0.03 K/mm3 (0.00-0.68); EOSINOPHILS PERCENT AUTO 0 % (0-6); Hematocrit 26.2 % (33.0-51.0); Hemoglobin 8.4 g/dL (11.5-16.0); IMMATURE GRAN ABSOLUTE AUTO 0.04 K/mm3 (0.00-0.10); IMMATURE GRAN PERCENT AUTO 1 % (0-1); LYMPHOCYTES ABSOLUTE AUTO 0.15 K/mm3 (0.84-5.20); LYMPHOCYTES PERCENT AUTO 2 % (21-46); MONOCYTES ABSOLUTE AUTO 0.25 K/mm3 (0.16-1.47); MONOCYTES PERCENT AUTO 4 % (4-13); Mean Corpuscular HGB 31.6 pg (26.0-34.0); Mean Corpuscular HGB Conc 32.1 g/dL (31.5-36.5); Mean Platelet Volume 10.8 fL (9.1-12.4); NEUTROPHILS ABSOLUTE AUTO 6.27 K/mm3 (1.96-9.15); NEUTROPHILS PERCENT AUTO 93 % (41-73); Platelet Count 125 K/mm3 (150-400); RDW Coefficient Variation 22.5 % (11.7-14.2); RDW Standard Deviation 80.4 fL (35.1-46.3); Red Blood Cell Count 2.66 M/mm3 (3.80-5.20); White Blood Cell Count 6.75 K/mm3 (4.00-11.30)
[2023-01-19 04:10] LABS: Albumin, Blood 1.3 g/dL (3.4-5.0); Albumin/Globulin Ratio 0.4 (0.8-1.8); Bilirubin, Total 0.6 mg/dL (0.1-1.0); Bun/Creatinine Ratio 35.1 (12.0-20.0); Calcium, Blood 7.7 mg/dL (8.5-10.1); Creatinine, Blood 0.85 mg/dL (0.40-1.00); Globulin, Blood 3.6 g/dL (2.2-4.0); Potassium, Blood 3.8 mmol/L (3.5-5.5); Total Protein, Blood 4.9 g/dL (6.4-8.2)
[2023-01-19 04:14] LABS: Mean Corpuscular Volume 99 fL (80-100)
--- NOTE | 2023-01-19 06:07 | NUR ---
SHIFT SUMMARY A/Ox2-3 AND COOPERATIVE WITH CARE. ANSWERS MOST QUESTIONS APPROPRIATELY/MAKE HER NEEDS KNOWN, BUT CAN BE HARD TO UNDERSTAND AT TIMES. A LITTLE ANXIOUS THIS AM. CARDIAC, REMAINS IN AFIB RANGING 90-120 S WITH NO REPORTS OF CP, PRESSURE, OR PALPITATIONS. SBP HAS BEEN STABLE RANGING 110'S-120'S T/O THE NIGHT. RESPIRATORY, MAINTAINS SPO2 >92% ON 2-3L VIA NC. DENIES SOB OR DYSPNEA AT REST AND IS ABLE TO SPEAK IN FULL SENTENCES. INCREASED WORK OF BREATHING NOTED WITH MILD EXERTION HOWEVER. GI/, PUREWICK IN PLACE DRAINING ERIC/TEA COLORED URINE TO SUCTION. 1xBM THIS SHIFT WITH NO SIGNS OF MELENA/TARRY STOOL. REDNESS NOTED ON COCCYX WITH NEW MEPILEX DRESSING APPLIED. PLEURX DRAIN REMAINS IN PLACE WITH INTACT DRESSING. PT TO BE NPO FOR POSSIBLE EGD THIS AM. 1/2NS HAS BEEN INFUSING T/O THE NIGHT PER MD ORDER. ASSESSED PT FOR RISKS OF ANY IGNITION SOURCES WELL BEHAVIORS FOR INCREASED RISKS OF FIRE DANGER. PT EDUCATED ON COMMON SOURCES OF IGNITION WELL NEED TO KEEP A SAFE ENVIRONMENT. PT VOICED UNDERSTANDING. NO NEW ORDERS AT THIS TIME, WILL REPORT TO ONCOMING RN. GERI HORNE OF THIS NOTE
--- NOTE | 2023-01-19 08:46 | NUR ---
Am note Pt alert, oriented x2-3; [place]. Cooperative with care. Pt resting in bed, up with 1 person assist. Pt denies pain, chest pain/pressure, nausea, dizziness and numb/tingling. Tele afib 130-150, medicated per emar, trending down to 110's, bp stalbe. Abd continues to be distended, soft on palp, +bt t/o. Spo2 >90% on 3l o2 via nc, tachypnic. Edema noted to ble and bue. Other vss. No other acute changes noted. Will continue to monitor.
--- NOTE | 2023-01-19 14:52 | NUR ---
Brief supportive visit this afternoon. Pt resting in bed with her eyes closed upon arrival. Pt wakes to gentle verbal stimuli. Pt difficult to understand as her speach is garbled. Pt appears dyspneic as evidenced by work of breathing. Ended visit to allow Pt to rest. Spoke with Primary RN Linn and discussed case. EDG planned for this afternoon. Palliative Care will remain available
--- NOTE | 2023-01-19 15:24 | NUR ---
Transfer note Pt transfering to room 355, report given to RN assuming care of patient. Vss. Pt received 2 doses of lasix during shift. Pt continues to be tacypnic. No other acute changes noted.
--- NOTE | 2023-01-19 16:13 | NUR ---
TRANSFER ASSUMED CARE AT 1545. REPROT RECEIVED FROM DESMOND MAURICIO. OZZIE, TACHYPNEIC. PT HAH AND SOT SPOKEN, BUT WAS ABLE TO MAKE NEEDS KNOWN. DENIES ANY PAIN, HEADACHE, DIZZINESS, OR CP/PRESSURE. SHE WILL BE GOING DOWN FOR AN EGD SHORTLY. BED IN LOWEST POSITION. CALL LIGHT WITHIN REACH.
--- NOTE | 2023-01-19 17:34 | NUR ---
01/19/[address] SHANNON'S ANESTHESIA RECORD.
--- NOTE | 2023-01-19 18:34 | NUR ---
SHIFT SUMMARY PATIENT RETURNED FROM EGD AT 1600. L DUODENAL ULCER FOUND PER REPORT. INCREASED RR AT 30, O2 SATS 87-88% ON 2L. INCREASED O2 TO 3L AND SATS INCREASED TO 92%. INCREASED O2 TO 4L AND SATS WENT TO 94%. DECREASED O2 BACK DOWN TO 4L AND PATIENT HAS REMAINED 94%. CN KATHY NOTIFIED AND MONITORED. PT REPORTS ABD PAIN AND MEDICATED WITH TYLENOL. PATIENT'S NEPHEW TRAVIS IS AT BEDSIDE HELPING PT EAT HER DINNER. LIQUID OMEPRAZOLE ORDERED FOR PATIENT. WAITING TO ADMINISTER UNTIL PATIENT'S TACHYPNEA DECREASES. BED IN LOWEST POSITION AND CALL LIGHT WITHIN REACH.
[2023-01-20 02:33] VITALS: BP 124/89
--- NOTE | 2023-01-20 04:30 | NUR ---
SUMMARY: PT IS A/OX2-3 BUT IS VERY [place] AND SOFT SPOKEN. SHE REMAINS DROWSY POST EGD BUT IS WAKEFUL TO VOICE AND IS ABLE TO SPECIFY NEEDS. TYLENOL RECIEVED PRN FOR GENERALIZED PAIN. ABDO REMAINS SLIGHTLY DISTENDED BUT SHE DENIES DISCOMFORT. SHE CONT'T TO HAVE FREQ SM-MED YELLOW/BROWN BM'S THAT ARE LIQUID/SLIME CONSISTENCY. ATTENDS CHANGED PRN FOR INCONTINENCE W/MEPILEX PLACED TO BUTTOCKS AND CREAM APPLIED TO AUDIE AREA. SKIN IS RED AND BRUISED APPEARING W/TURN SCHEDULE MAINTAINED FOR SBD PREVENTION. STOOL SPECIMEN WAS OBTAINED AND H.[facility]LOR[facility] LAB IS PENDING. 1ST DOSE OMEPRAZOLE RECIEVED AT HS AND PT TOLERATED PILLS CRUSHED IN APPLESAUCE. MEDS PRESENTLY ON EMAR CAN ALL BE CRUSHED PER 'S REQUEST TO CLARIFY THIS. SHE WEARS 2L AT BASELINE BUT HAS REQUIRED 4L TO MAINTAIN SPO2>90'S% SINCE PROCEDURE. RR IS TACHY AT TIMES BUT SHE'S ASYMPTOMATIC OF RESP DISTRESS. PLEUREX DRAIN TO L.CHEST IS SECURE AND INTACT. PT IS AFIB ON TELEMETRY AT 70'S-80'S BPM. NO ACUTE CHANGES, VSS AND AFEBRILE. WCTM AND REPORT TO DAY RN.
[2023-01-20 05:42] LABS: BASOPHILS ABSOLUTE AUTO 0.02 K/mm3 (0.00-0.23); BASOPHILS PERCENT AUTO 0 % (0-2); EOSINOPHILS PERCENT AUTO 0 % (0-6); Hematocrit 28.9 % (33.0-51.0); Hemoglobin 9.4 g/dL (11.5-16.0); IMMATURE GRAN ABSOLUTE AUTO 0.05 K/mm3 (0.00-0.10); IMMATURE GRAN PERCENT AUTO 1 % (0-1); LYMPHOCYTES ABSOLUTE AUTO 0.18 K/mm3 (0.84-5.20); LYMPHOCYTES PERCENT AUTO 2 % (21-46); MONOCYTES ABSOLUTE AUTO 0.25 K/mm3 (0.16-1.47); MONOCYTES PERCENT AUTO 3 % (4-13); Mean Corpuscular HGB 32.2 pg (26.0-34.0); Mean Corpuscular HGB Conc 32.5 g/dL (31.5-36.5); Mean Corpuscular Volume 99 fL (80-100); Mean Platelet Volume 11.7 fL (9.1-12.4); NEUTROPHILS ABSOLUTE AUTO 7.57 K/mm3 (1.96-9.15); NEUTROPHILS PERCENT AUTO 94 % (41-73); Platelet Count 171 K/mm3 (150-400); RDW Coefficient Variation 21.3 % (11.7-14.2); RDW Standard Deviation 77.9 fL (35.1-46.3); Red Blood Cell Count 2.92 M/mm3 (3.80-5.20); White Blood Cell Count 8.07 K/mm3 (4.00-11.30)
[2023-01-20 06:23] LABS: Albumin, Blood 1.5 g/dL (3.4-5.0); Albumin/Globulin Ratio 0.4 (0.8-1.8); Bilirubin, Total 0.6 mg/dL (0.1-1.0); Calcium, Blood 7.9 mg/dL (8.5-10.1); Creatinine, Blood 1.09 mg/dL (0.40-1.00); Globulin, Blood 3.6 g/dL (2.2-4.0); Potassium, Blood 3.6 mmol/L (3.5-5.5); Total Protein, Blood 5.1 g/dL (6.4-8.2)
[2023-01-20 07:30] VITALS: BP 132/100
[2023-01-20 08:15] VITALS: BP 132/93
--- NOTE | 2023-01-20 09:02 | NUR ---
PT REPORTS CHEST DISCOMFORT. SHE IS DYSPNIC. 5L NC 92% SAT. REPORTS PALPATATIONS. DR. GAGE NOTIFIED. TO SEE PT AT BEDSIDE
--- NOTE | 2023-01-20 09:33 | NUR ---
NITRO GIVEN PT STATES SOME RELIEF BUT STARTED FEELING PAINFUL AND SHARP AROUND 0930. SECOND NITRO GIVEN 0931 VITAL 118/69. PT CONTINUES TO FEEL PAIN VITALS AROUND 0936- 102/58 REPORT PAIN 8-10/18 DR. GAGE NOTIFED. AWATING ORDERS
--- NOTE | 2023-01-20 09:58 | NUR ---
PT REPORTS 5/10 CHEST PAIN LAB AND XRAY AT BEDSIDE. MORPINE ADMINISTERED
[2023-01-20 11:08] VITALS: BP 119/89
[2023-01-20 15:37] VITALS: BP 117/82
--- NOTE | 2023-01-20 18:32 | NUR ---
PT IS ALERT AND ORIENTED X3. BIG SANDY AND HARD TO UNDERSTAND. SHE NEEDS TO BE GIVEN TIME TO ANSWER QUESTIONS BUT DOES ANSWER APPROPRIATELY. CONCERN THIS MORNING FOR PAIN IN CHEST. PLS SEE PREVIOUS NOTE. 2 DOSE NITRO AND MORPHINE GIVEN, NO EVENTS ON TELE MONITOR. TROP ELEVATED. DR. CALLAHAN NOTIFIED. PT WEAK TODAY. TITRATED FROM 5L TO 3L NC. SAT >90%. PT/OT WORKED WITH PT TODAY. BED IS IN THE LOWEST POSITION WITH CALL LIGHT IN REACH. SBA TO BEDSIDE COMMODE.
[2023-01-20 19:56] VITALS: BP 126/82
[2023-01-21 03:35] VITALS: BP 130/86
--- NOTE | 2023-01-21 04:38 | NUR ---
SHIFT SUMMARY PATIENT HAD NO ACUTE CHANGES. AXOX 3, BEDREST, AND METLAKATLA. USES BEDPAN. PIV REMAINS INTACT. NORMAL SALINE INFUSING. TEGEDERM REPLACED WITH DRESSING ON PLEUR X DRAIN. VSS/AFEBRILE. DENIES PAIN, SOB, AND N/V. 0N 4L O2 NC. SLEPT ON/OFF T/O SHIFT. CALL LIGHT IN REACH. BED IN LOWEST POSITION AND ALARM ACTIVATED. WILL CONTINUE TO MONITOR UNTIL DAY SHIFT NURSE ASSUMES CARE.
[2023-01-21 04:59] LABS: Hemoglobin 9.2 g/dL (11.5-16.0); Mean Corpuscular HGB 32.2 pg (26.0-34.0); Mean Corpuscular HGB Conc 31.7 g/dL (31.5-36.5); Mean Corpuscular Volume 101 fL (80-100); Mean Platelet Volume 11.3 fL (9.1-12.4); NRBC ABSOLUTE 0.02 K/mm3 (0.00-0.02); NRBC Auto 0.3 /100 WBC (0.0-0.2); Platelet Count 177 K/mm3 (150-400); RDW Standard Deviation 77.8 fL (35.1-46.3); Red Blood Cell Count 2.86 M/mm3 (3.80-5.20); White Blood Cell Count 7.65 K/mm3 (4.00-11.30)
[2023-01-21 05:22] LABS: Bun/Creatinine Ratio 33.3 (12.0-20.0); Calcium, Blood 7.8 mg/dL (8.5-10.1); Creatinine, Blood 1.08 mg/dL (0.40-1.00); Potassium, Blood 3.7 mmol/L (3.5-5.5)
[2023-01-21 07:47] VITALS: BP 129/77
--- NOTE | 2023-01-21 12:11 | NUR ---
Spiritual Care Visit. Pt. is awake and sitting up in a recliner when she welcomes my visit. Pt. displays evidence of a very weak voice, but a life review is still conducted. Pt. verbalizes some anxiety about her nephew at home. Listen with empahty and a calming presence. Pt. displayed awareness and engagement. Prayed with Pt. Pt. verbalized gratitude for the spiritual care visit.
--- NOTE | 2023-01-21 14:38 | NUR ---
1345-RN NOTIFED BY ST TO PT MOUTH. APPEARS TO BE COFFEE GROUND LIKE SUBSTANCE IN BUCCAL CAVITY. NO ACTIVE BLEEDING NOTED. AFTER WASHING MOUTH WITH WATER. IT APPEARS THAT SOME OF THE MATTER COULD BE MASHED UP BLUEBERRIES THAT PT ATE FOR LUNCH. PT DENIES PAIN OF GI TRACK. DR. CALLAHAN NOTIFIED. WILL CONTINUE TO MONITOR FOR ACTIVE BLEEDING.
--- NOTE | 2023-01-21 16:10 | NUR ---
PT IS CURRENTLY RESTING WITH EYES CLOSED. REPONDS TO VERBAL STIMULI. SHE BECOMES EXTREMELY WEAK FOLLOWING ANY EXERTION. SHE HAS DIFFICULTY CATCHING HER BREATH AND BECOMES TACHYPNIC; TAKING SEVERAL MINUTES TO RETURN TO BASELINE. IT APPEARS SHE MAY HAVE HAD SOME COFFEE GROUND LIKE MATERIAL IN HER MOUTH AT LUNCH TIME. NO OBVIOUS BLEEDING NOTED. PT DENIES CHEST PAIN AND ABDOMENAL PAIN. SHE REPORTS PAIN ON HER BOTTOM AND COCCYX. MEPILEX IN PLACE. BOTTOM IS RED AND IRRITATED BUT BLANCHABLE. CREAMS USED FOR SKIN PROTECTION. CURRENTLY HIPS ARE FLOATED TO RELIEVE PRESSURE. SHE IS VERY EDEMATOUS IN BLE AND MODERATELY IN BUE. EXTREMETIES ELEVATED. USE OF PILLOWS FOR SUPPORT. MINIMAL OUTPUT TODAY. BUT INPUT APPEARS TO HAVE IMPROVED. TELE MONITOR ALERTED TO PAUSE WITH MENA TO 35 AND FLIP IN BBB. WILL SEND TO CHART. NO ACUTE CHANGES 3L NC, 2 PERSON ASSIST TO CHAIR AND BED. BED TOMAS USE WHEN TOO WEAK. BED IS IN THE LOWEST POSITION WITH CALL LIGHT IN REACH.
[2023-01-21 16:22] VITALS: BP 119/81
[2023-01-21 19:41] VITALS: BP 138/94
[2023-01-22 03:14] VITALS: BP 134/81
--- NOTE | 2023-01-22 04:13 | NUR ---
SHIFT SUMMARY PATIENT HAD NO ACUTE CHANGES. AXOX 2 AND BEDREST. TONTO APACHE WITH MUMBLED SPEECH. ON 4L O2 NC. DENIES CHEST PAIN, SOB, AND N/V. PULLS O2 OFF AT TIMES. PIV REMAINS INTACT. TELE MONITOR AFIB 76. VSS/AFEBRILE. CALL LIGHT IN REACH. BED IN LOWEST POSITION AND BED ALARM ACTIVATED. WILL CONTINUE TO MONITOR UNTIL DAY SHIFT NURSE ASSUMES CARE.
[2023-01-22 05:16] LABS: BASOPHILS ABSOLUTE AUTO 0.02 K/mm3 (0.00-0.23); BASOPHILS PERCENT AUTO 0 % (0-2); EOSINOPHILS ABSOLUTE AUTO 0.01 K/mm3 (0.00-0.68); EOSINOPHILS PERCENT AUTO 0 % (0-6); Hematocrit 28.6 % (33.0-51.0); IMMATURE GRAN ABSOLUTE AUTO 0.14 K/mm3 (0.00-0.10); IMMATURE GRAN PERCENT AUTO 2 % (0-1); LYMPHOCYTES ABSOLUTE AUTO 0.22 K/mm3 (0.84-5.20); LYMPHOCYTES PERCENT AUTO 3 % (21-46); MONOCYTES ABSOLUTE AUTO 0.29 K/mm3 (0.16-1.47); MONOCYTES PERCENT AUTO 4 % (4-13); Mean Corpuscular HGB 31.8 pg (26.0-34.0); Mean Corpuscular HGB Conc 31.5 g/dL (31.5-36.5); Mean Corpuscular Volume 101 fL (80-100); Mean Platelet Volume 11.7 fL (9.1-12.4); NEUTROPHILS ABSOLUTE AUTO 7.48 K/mm3 (1.96-9.15); NEUTROPHILS PERCENT AUTO 92 % (41-73); NRBC ABSOLUTE 0.03 K/mm3 (0.00-0.02); NRBC Auto 0.4 /100 WBC (0.0-0.2); Platelet Count 179 K/mm3 (150-400); RDW Coefficient Variation 20.8 % (11.7-14.2); RDW Standard Deviation 76.3 fL (35.1-46.3); Red Blood Cell Count 2.83 M/mm3 (3.80-5.20); White Blood Cell Count 8.16 K/mm3 (4.00-11.30)
[2023-01-22 06:04] LABS: Bun/Creatinine Ratio 36.5 (12.0-20.0); Calcium, Blood 7.8 mg/dL (8.5-10.1); Creatinine, Blood 0.9 mg/dL (0.40-1.00); Potassium, Blood 3.8 mmol/L (3.5-5.5)
[2023-01-22 07:33] VITALS: BP 133/82
--- NOTE | 2023-01-22 08:30 | NUR ---
PATIENT RESPIRATIONS 32 ON 3LPM NC, O2 SAT 99% AND HR 84, PATIENT VERY SLEEPY BUT DOES OPEN HER EYES AND FOLLOW DIRECTIONS FOR DEEP BREATHS. RESP DECREASE TO 27 WITH NASAL CANULA IN NOSE O2 SAT CONTINUES TO BE 99%. DR GAGE NOTIFIED AND SHE WILL COME EVALUATE SHORTLY.
[2023-01-22] MEDS ORDERED: OMEP20ER PO (16:25)
--- NOTE | 2023-01-22 19:49 | NUR ---
SHIFT SUMMARY PATIENT WITH TACHYPNEA THIS MORNING. SHE IS VERY LETHARGIC AND [place]. SHE DOES COMMUNICATE IMMEDIATE NEED OF COMFORT. PATIENT STATES I WANT SOMEONE TO HOLD MY HAND WHEN I . SHE ALSO STATES "HELP" SEVERAL TIMES. PATIENT TOO LETHARGIC FOR MORNING MEDS INITIALLY BUT WOKE UP ENOUGH TO TAKE MEDICATIONS AND EAT AROUND 1030. SHE DRANK A LARGE AMOUNT OF WATER, DRANK AN ENSURE AND ATE TWO YOGURTS AND AN APPLESAUCE WHEN GIVEN MOST OF HER MEDS. RESPIRATION IN EARLY AM 32, DECREASED TO 27 WHEN O2 TUBING IS PLACED IN HER MOUTH OR SHE IS REMINDED TO BREATHE THROUGH HER NOSE WHEN ON HER NOSE. SHE ONCE DESATTED TO 86% UNTIL SOME DEEP BREATHING WITH 2LPM BROUGHT HER BACK UP TO 96% TOO WALKER AND KIN ROBLES AWARE.
--- NOTE | 2023-01-22 19:55 | NUR ---
DISCHARGE SUMMARY PATIENT PACKET PRINTED AND SIGNATURES OBTAINED BY NEPHEW. PATIENT VERBALIZED DESIRE FOR NEPHEW TO SIGN. ENGINEERING EXECUTIVE AND VICENTE OLSEN ASSISTED PATIENT WITH HER CLOTHING AND STANDING UP TO PIVOT INTO WHEELCHAIR. POWERGLIDE REMOVED BY ENGINEERING EXECUTIVE. PATIENT LEFT FACTILITY AT 1630 WITH NEPHEW, LEAVING VIA PRIVATE VEHICLE TO HOME WITH HOME HEALTH [facility] HOS[facility].
== END 2023-01-22 17:19 | disposition home health service (06) | DRG 377 ==
LOC: ER 12:14 → PCU 16:31 → MEDS 01-19 15:48 → ENPENDDIS 01-22 13:11 → MEDS 01-22 17:19
PROVIDERS: Emergency Medicine; Family Medicine; Hospitalist; Internal Medicine Gastroenterology; Physician Assistant; Student in an Organized Health Care Education/Training Program; ADMIT Internal Medicine
PROC: 30233N1 Transfusion of Nonautologous Red Blood Cells into Peripheral Vein, Percutaneous Approach (ICD-10-PCS; 2023-01-18)
PROC: 0DJ08ZZ Inspection of Upper Intestinal Tract, Via Natural or Artificial Opening Endoscopic (ICD-10-PCS; principal; 2023-01-19 15:30)
DX: K26.6 Chronic or unspecified duodenal ulcer with both hemorrhage and perforation (principal); J96.21 Acute and chronic respiratory failure with hypoxia; N17.0 Acute kidney failure with tubular necrosis; I50.22 Chronic systolic (congestive) heart failure; D62 Acute posthemorrhagic anemia; J91.0 Malignant pleural effusion; C83.30 Diffuse large B-cell lymphoma, unspecified site; I13.0 Hypertensive heart and chronic kidney disease with heart failure and stage 1 through stage 4 chronic kidney disease, or unspecified chronic kidney disease; I48.19 Other persistent atrial fibrillation; Z66 Do not resuscitate; I34.0 Nonrheumatic mitral (valve) insufficiency; D63.0 Anemia in neoplastic disease; I95.89 Other hypotension; E88.09 Other disorders of plasma-protein metabolism, not elsewhere classified; K66.8 Other specified disorders of peritoneum; N18.30 Chronic kidney disease, stage 3 unspecified; E78.2 Mixed hyperlipidemia; F03.A0 Unspecified dementia, mild, without behavioral disturbance, psychotic disturbance, mood disturbance, and anxiety; D63.1 Anemia in chronic kidney disease; D69.6 Thrombocytopenia, unspecified; M81.0 Age-related osteoporosis without current pathological fracture; R34 Anuria and oliguria; Z99.81 Dependence on supplemental oxygen; Z86.73 Personal history of transient ischemic attack (TIA), and cerebral infarction without residual deficits; Z11.52 Encounter for screening for COVID-19; Z79.01 Long term (current) use of anticoagulants; Z97.8 Presence of other specified devices
CPT/HCPCS: 0241U; 36415; 71045; 74022; 74177; 80048; 80053; 80069; 80162; 82272; 82607; 82728; 82746; 83540; 83550; 83735; 83880; 84484; 85014; 85018; 85025; 85027; 85045; 86850; 86900; 86901; 86923; 87338; 92610; 93005; 93010; 94760; 94762; 96365; 97110; 97161; 97166; 97530; 97535; 99285-25; A9270; C1751; C9113; J0295; J1160; J1885; J1940; J2001; J2270; J2405; J2916; J7030; J7050; J7120; P9016; Q9967